=== PATIENT | male | born 1985 | race Caucasian/White ===

== ENCOUNTER 2018-01-20 11:50 | Emergency (ER) | payer OTHER ==
--- NOTE | 2018-01-20 13:29 | RAD REPORT ---
EXAM DESCRIPTION: RAD - Knee Left 3 View - 01/20/2018 1:23 pm CLINICAL HISTORY: Left knee pain status post injury FINDINGS: No fracture or dislocation is seen. No significant bone or joint abnormality is seen
--- NOTE | 2018-01-20 13:39 | ER ---
Nurse's Notes [facility] Name: Mat Jenkins Age: 32 yrs Sex: Male : 1985 Arrival Date: 01/20/2018 Time: 11:57 Bed 16 Private MD: Vaishali Dela Cruz Diagnosis: Pain in left knee Presentation: 01/20 12:01 Presenting complaint: Patient states: LEFT knee pain 8/10 after rolled foot inward hb while walking in yard last night. Unable to bear weight. Transition of care: patient was not received from another setting of care. Onset of symptoms was January 19, 2018. Initial Sepsis Screen: Does the patient meet any 2 criteria? No. Patient's initial sepsis screen is negative. Does the patient have a suspected source of infection? No. Patient's initial sepsis screen is negative. Care prior to arrival: None. 12:01 Method Of Arrival: Wheelchair hb 12:01 Acuity: SANDY 4 hb Historical: - Allergies: 12:03 No Known Allergies; hb - Home Meds: 12:03 None [Active]; hb - PMHx: 12:03 Crohn's; Hernia; PTSD; Tonsillitis; hb - PSHx: 12:03 Appendectomy; Tonsillectomy; Hernia repair; hb - Immunization history:: Adult Immunizations up to date. - Social history:: Smoking status: Patient uses tobacco products, smokes one-half pack cigarettes per day. Screenin:00 Abuse screen: Denies threats or abuse. Denies injuries from another. Nutritional ph screening: No deficits noted. Tuberculosis screening: No symptoms or risk factors identified. Fall Risk None identified. Assessment: 13:00 General: Appears in no apparent distress. uncomfortable, well groomed, Behavior is ph calm, cooperative, appropriate for age. Pain: Complains of pain in left knee. Neuro: Level of Consciousness is awake, alert, obeys commands, Oriented to person, place, time, situation. Cardiovascular: Capillary refill < 3 seconds Patient's skin is warm and dry. Respiratory: Airway is patent Respiratory effort is even, unlabored. Derm: Skin is intact, is healthy with good turgor, Skin is pink, warm \T\ dry. Musculoskeletal: Circulation, motion, and sensation intact. Range of motion: limited in left knee. Vital Signs: 12:00 BP 130 / 93; Pulse 87; Resp 16; Temp 97.8(TE); Pulse Ox 100% on R/A; Weight 88.45 kg; hb Height 5 ft. 7 in. (170.18 cm); Pain 8/10; 12:56 BP 137 / 85; Pulse 84; Resp 17; Pulse Ox 99% ; mh5 12:00 Body Mass Index 30.54 (88.45 kg, 170.18 cm) hb ED Course: 11:57 Patient arrived in ED. as 11:57 [facility] is Private Physician. as 12:02 Triage completed. hb 12:03 Arm band placed on right wrist. hb 12:48 Desmond Pierce MD is Attending Physician. gs 13:00 Patient has correct armband on for positive identification. Bed in low position. Call ph light in reach. Side rails up X 1. 13:19 X-ray completed. Portable x-ray completed in exam room. Patient tolerated procedure jb2 well. 13:21 Knee Left 3 View XRAY In Process Unspecified. EDMS 13:39 Douglas Quintana MD is Referral Physician. gs 14:30 No provider procedures requiring assistance completed. Patient did not have IV access ph during this emergency room visit. 14:34 Kitty Galvan, RN is Primary Nurse. ph Administered Medications: No medications were administered Outcome: 13:39 Discharge ordered by . gs 14:34 Patient left the ED. ph 14:34 Condition: good ph 14:34 Discharge instructions given to Pt left ED before signing discharge papers Signatures: Dispatcher [employer] EDMS Helder Gtz jb2 Meredith Cardenas as Kitty Galvan RN RN Nicolette Fall RN RN Ellen Cardenas [facility] Desmond Pierce MD MD Corrections: (The following items were deleted from the chart) 12:03 12:01 Presenting complaint: Patient states: LEFT ankle pain 8/10 after rolled foot hb inward while walking in yard last night. Unable to bear weight. hb
--- NOTE | 2018-01-20 13:39 | EDPHYS ---
Physician Documentation [facility] Name: Mat Jenkins Age: 32 yrs Sex: Male : 1985 Arrival Date: 01/20/2018 Time: 11:57 Bed 16 [facility] Desmond Pierce HPI: 01/20 13:31 This 32 yrs old Male presents to ER via Wheelchair with complaints of Leg gs Pain. 13:31 The patient presents with an injury, pain. The complaints affect the left knee. Onset: gs The symptoms/episode began/occurred yesterday. Modifying factors: The symptoms are alleviated by nothing. the symptoms are aggravated by movement, weight bearing. Associated signs and symptoms: Pertinent negatives calf tenderness, swelling, hip pain. Severity of symptoms: At their worst the symptoms were moderate, in the emergency department the symptoms are unchanged. The patient has not experienced similar symptoms in the past. Historical: - Allergies: 12:03 No Known Allergies; hb - Home Meds: 12:03 None [Active]; hb - PMHx: 12:03 Crohn's; Hernia; PTSD; Tonsillitis; hb - PSHx: 12:03 Appendectomy; Tonsillectomy; Hernia repair; hb - Immunization history:: Adult Immunizations up to date. - Social history:: Smoking status: Patient uses tobacco products, smokes one-half pack cigarettes per day. ROS: 13:31 All other systems are negative. gs Exam: 13:31 ENT: Nares patent. No nasal discharge, no septal abnormalities noted. Tympanic gs membranes are normal and external auditory canals are clear. Oropharynx with no redness, swelling, or masses, exudates, or evidence of obstruction, uvula midline. Mucous membranes moist. Neck: Trachea midline, no thyromegaly or masses palpated, and no cervical lymphadenopathy. Supple, full range of motion without nuchal rigidity, or vertebral point tenderness. No Meningismus. Chest/axilla: Normal chest wall appearance and motion. Nontender with no deformity. No lesions are appreciated. Cardiovascular: Regular rate and rhythm with a normal S1 and S2. No gallops, murmurs, or rubs. Normal PMI, no JVD. No pulse deficits. Respiratory: Lungs have equal breath sounds bilaterally, clear to auscultation and percussion. No rales, rhonchi or wheezes noted. No increased work of breathing, no retractions or nasal flaring. Abdomen/GI: Soft, non-tender, with normal bowel sounds. No distension or tympany. No guarding or rebound. No evidence of tenderness throughout. Back: No spinal tenderness. No costovertebral tenderness. Full range of motion. Skin: Warm, dry with normal turgor. Normal color with no rashes, no lesions, and no evidence of cellulitis. Neuro: Awake and alert, GCS 15, oriented to person, place, time, and situation. Cranial nerves II-XII grossly intact. Motor strength 5/5 in all extremities. Sensory grossly intact. Cerebellar exam normal. Normal gait. 13:31 Constitutional: The patient appears alert, awake. 13:31 Musculoskeletal/extremity: Extremities: ROM: limited active range of motion due to pain, limited passive range of motion due to pain, in the left knee, Pulses: are normal with no appreciated deficits, Sensation intact. Joints: the left knee displays no swelling or redness pt resisting when putting knee through rom, . Vital Signs: 12:00 BP 130 / 93; Pulse 87; Resp 16; Temp 97.8(TE); Pulse Ox 100% on R/A; Weight 88.45 kg; hb Height 5 ft. 7 in. (170.18 cm); Pain 8/10; 12:56 BP 137 / 85; Pulse 84; Resp 17; Pulse Ox 99% ; mh5 12:00 Body Mass Index 30.54 (88.45 kg, 170.18 cm) hb MDM: 12:58 Patient medically screened. 13:31 Differential diagnosis: closed fracture, tendonitis. Data reviewed: vital signs, nurses gs notes. Response to treatment: There is no appreciated change of the patient's symptoms at this time, and as a result, I will discharge patient. 13:39 Counseling: I had a detailed discussion with the patient and/or guardian regarding: the gs presence of at least one elevated blood pressure reading (>120/80) during this emergency department visit. Special discussion: I have referred the patient to see his PCP for further evaluation of high blood pressure. 01/20 12:59 Order name: Knee Left 3 View XRAY; Complete Time: 13:31 gs Administered Medications: No medications were administered Disposition: 01/20/18 13:39 Discharged to Home. Impression: Pain in left knee. - Condition is Stable. - Discharge Instructions: Arthralgia, Knee Pain, Managing Your High Blood Pressure. - Medication Reconciliation Form, Thank You Letter, Antibiotic Education, Prescription Opioid Use form. - Follow up: Douglas Quintana MD; When: 2 - 3 days; Reason: Re-evaluation by your physician. Signatures: Dispatcher [employer] Kitty Foster RN RN ph Baxter, Heather, RN RN Desmond Pierce MD MD
[2018-01-20 14:37] VITALS: TEMP 97.8
[2018-01-20 14:38] VITALS: BP 137/85; O2SAT 99
== END 2018-01-20 14:34 | disposition home or self-care (01) ==
LOC: ER 11:50
DX: M25.562 Pain in left knee (principal); F17.210 Nicotine dependence, cigarettes, uncomplicated
CPT/HCPCS: 99283

== ENCOUNTER 2020-11-16 12:22 | Emergency (ER) | payer OTHER ==
[2020-11-16 12:57] LABS: Absolute Lymphocytes (CBC) 2.8 K/uL (0.7-4.9); Basophils % 0.6 % (0-1.3); Lymphocytes % 35.4 % (15.3-44.8); MPV 7.6 fL (7.6-11.3); RBC Red Blood Cell Count 4.49 M/uL (4.33-5.43)
[2020-11-16 12:58] LABS: Protime INR 0.96
[2020-11-16 13:15] LABS: ALT/SGPT 33 U/L (12-78); AST/SGOT 12 U/L (15-37); Albumin 3.9 g/dL (3.4-5.0); Alkaline Phosphatase 40 U/L (45-117); BUN Blood Urea Nitrogen 9 mg/dL (7-18); Bicarbonate 26 mmol/L (21-32); Bilirubin Direct < 0.1 mg/dL (0-0.2); Bilirubin Total 0.2 mg/dL (0.2-1.0); Glucose Level 99 mg/dL (74-106); Magnesium 2.4 mg/dL (1.8-2.4); NT PRO-BNP 19 pg/mL (<125); Potassium 4.2 mmol/L (3.5-5.1); Protein, Total 7.4 g/dL (6.4-8.2); Sodium Level 141 mmol/L (136-145); Troponin (Emerg Dept Use Only) < 0.02 ng/mL (0.0-0.045)
--- NOTE | 2020-11-16 13:22 | RAD REPORT ---
EXAM DESCRIPTION: RAD - Chest Single View - 11/16/2020 1:15 pm CLINICAL HISTORY: CHEST PAIN Chest pain. COMPARISON: Chest Single View dated 10/03/2017; CHEST PA AND LAT 2 VIEW dated 01/07/2012; CHEST SINGLE VIEW dated 04/29/2011 FINDINGS: Portable technique limits examination quality. The lungs are grossly clear. The heart is normal in size. No displaced fractures. IMPRESSION: No acute intrathoracic process suspected.
[2020-11-16 15:25] LABS: SARS-COV-2 RT PCR NEGATIVE (NEGATIVE)
--- NOTE | 2020-11-16 15:53 | EDPHYS ---
Physician Documentation [facility] Name: Mat Jenkins Age: 35 yrs Sex: Male : 1985 Arrival Date: 11/16/2020 Time: 12:26 Bed 20 Private MD: ED Physician Mahendra Ag HPI: 11/16 14:24 This 35 yrs old Male presents to ER via EMS with complaints of Chest Pain. kb 14:24 The patient or guardian reports chest pain that is located primarily in the anterior kb chest wall, left. The pain radiates to the left shoulder. Associated signs and symptoms: Pertinent positives: shortness of breath, Pertinent negatives: abdominal pain, cough, diaphoresis, dizziness, headache, lower extremity pain, lower extremity swelling, lightheadedness, nausea, near syncope, palpitations, recent travel, syncope, vomiting. The chest pain is described as a pressure. Duration: The patient or guardian reports a single episode, that is still ongoing. Modifying factors: The symptoms are alleviated by nothing. the symptoms are aggravated by nothing. Severity of pain: At its worst the pain was moderate in the emergency department the pain is unchanged. The patient has not experienced similar symptoms in the past. The patient has been recently seen by a physician: the patient's primary care provider, earlier today, with similar presenting complaints, and was sent to the [facility] Emergency Department for further evaluation. Pt reports left sided chest pain, shortness of breath, fatigue and not feeling well for 2-3 days. States he believes it is related to stress. 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 asked pt to come get checked out so that is what made him come today. . Historical: - Allergies: 12:29 No Known Allergies; bp - Home Meds: 12:29 None [Active]; bp - PMHx: 12:29 Crohn's; Hernia; PTSD; Tonsillitis; bp - Immunization history:: Adult Immunizations up to date. - Social history:: Smoking status: unknown. ROS: 14:22 Abdomen/GI: Negative for abdominal pain, nausea, vomiting, diarrhea, and constipation, kb Back: Negative for injury and pain, MS/Extremity: Negative for injury and deformity, Skin: Negative for injury, rash, and discoloration, Neuro: Negative for headache, weakness, numbness, tingling, and seizure. 14:22 Constitutional: Positive for fatigue, malaise. 14:22 Cardiovascular: Positive for chest pain. 14:22 Respiratory: Positive for shortness of breath. 14:22 Psych: Positive for insomnia. Exam: 14:23 Constitutional: This is a well developed, well nourished patient who is awake, alert, kb and in no acute distress. Head/Face: Normocephalic, atraumatic. Chest/axilla: Normal chest wall appearance and motion. Nontender with no deformity. No lesions are appreciated. Cardiovascular: Regular rate and rhythm with a normal S1 and S2. No gallops, murmurs, or rubs. Normal PMI, no JVD. No pulse deficits. Respiratory: Lungs have equal breath sounds bilaterally, clear to auscultation and percussion. No rales, rhonchi or wheezes noted. No increased work of breathing, no retractions or nasal flaring. Abdomen/GI: Soft, non-tender, with normal bowel sounds. No distension or tympany. No guarding or rebound. No evidence of tenderness throughout. Skin: Warm, dry with normal turgor. Normal color with no rashes, no lesions, and no evidence of cellulitis. MS/ Extremity: Pulses equal, no cyanosis. Neurovascular intact. Full, normal range of motion. 14:23 Neuro: Orientation: is normal, to person, place, time \T\ situation. Mentation: is normal, able to follow commands, Motor: is normal, moves all fours, Sensation: is normal, Gait: is steady. 15:02 ECG was reviewed by the Attending Physician. Vital Signs: 12:40 BP 121 / 83; Pulse 84; Resp 23; Temp 98; Pulse Ox 98% ; bp 13:44 BP 108 / 71 Supine; Pulse 74; Resp 14; Pulse Ox 99% on R/A; mh5 13:46 BP 101 / 72 Sitting; Pulse 88; Resp 18; Pulse Ox 99% on R/A; mh5 13:48 BP 106 / 67 Standing; Pulse 83; Resp 12; Temp 98.4(O); Pulse Ox 99% on R/A; mh5 14:30 BP 108 / 67; Pulse 69; Resp 19; Pulse Ox 98% ; bp 15:30 BP 110 / 73; Pulse 73; Resp 15; Pulse Ox 98% ; bp 16:15 BP 118 / 75; Pulse 88; Resp 22; Temp 98.5; Pulse Ox 100% ; bp MDM: 12:28 Patient medically screened. kb 14:22 Data reviewed: vital signs, nurses notes. Data interpreted: Pulse oximetry: on room air kb is 99 %. Interpretation: normal. Counseling: I had a detailed discussion with the patient and/or guardian regarding: the historical points, exam findings, and any diagnostic results supporting the discharge/admit diagnosis, lab results, radiology results, the need for outpatient follow up, a disulfurizer tender, a family practitioner, to return to the emergency department if symptoms worsen or persist or if there are any questions or concerns that arise at home. 11/16 12:28 Order name: Basic Metabolic Panel kb 11/16 12:28 Order name: CBC with Diff; Complete Time: 13:01 kb 11/16 12:28 Order name: LFT's kb 11/16 12:28 Order name: Magnesium kb 11/16 12:28 Order name: NT PRO-BNP; Complete Time: 13:18 kb 11/16 12:28 Order name: PT-INR; Complete Time: 13:04 kb 11/16 12:28 Order name: Troponin (emerg Dept Use Only); Complete Time: 13:18 kb 11/16 12:29 Order name: Basic Metabolic Panel; Complete Time: 13:18 EDMS 11/16 12:29 Order name: Liver (Hepatic) Function; Complete Time: 13:18 EDMS 11/16 12:29 Order name: Magnesium; Complete Time: 13:18 EDMS 11/16 14:27 Order name: Troponin (emerg Dept Use Only); Complete Time: 15:52 kb 11/16 15:26 Order name: COVID-19/FLU A+B; Complete Time: 15:39 EDMS 11/16 12:28 Order name: XRAY Chest (1 view); Complete Time: 13:38 kb 11/16 12:28 Order name: EKG; Complete Time: 12:29 kb 11/16 12:28 Order name: Cardiac monitoring; Complete Time: 12:42 kb 11/16 12:28 Order name: EKG - Nurse/Tech; Complete Time: 12:42 kb 11/16 12:28 Order name: IV Saline Lock; Complete Time: 12:45 kb 11/16 12:28 Order name: Labs collected and sent; Complete Time: 12:45 kb 11/16 12:28 Order name: O2 Per Protocol; Complete Time: 12:42 kb 11/16 12:28 Order name: O2 Sat Monitoring; Complete Time: 12:42 kb 11/16 12:50 Order name: Orthostatics; Complete Time: 15:03 kb 11/16 14:27 Order name: EKG; Complete Time: 14:28 kb 11/16 14:27 Order name: EKG - Nurse/Tech; Complete Time: 16:01 kb EC:02 Rate is 77 beats/min. Rhythm is regular. QRS [place] is Normal. TN interval is normal at kb 134 msec. QRS interval is normal at 88 msec. QT interval is normal at 358 msec. Administered Medications: No medications were administered Disposition: 17:58 Co-signature as Attending Physician, Mahendra Ag MD. rn Disposition: 11/16/20 15:52 Discharged to Home. Impression: Chest pain, unspecified. - Condition is Stable. - Discharge Instructions: Nonspecific Chest Pain, [id number]. - Medication Reconciliation Form, Thank You Letter, Antibiotic Education, Prescription Opioid Use form. - Follow up: Emergency Department; When: As needed; Reason: Worsening of condition. Follow up: Private Physician; When: 2 - 3 days; Reason: Recheck today's complaints, Continuance of care, Re-evaluation by your physician. Signatures: Dispatcher [employer] [facility] Arely Aguila, OTR REFRIGERATED CDL TRUCK DRIVER-C OTR REFRIGERATED CDL TRUCK DRIVER-Ckb Mahendra Ag MD MD rn Peltier, Brian, RN RN bp Corrections: (The following items were deleted from the chart) 14:33 12:51 CORONAVIRUS+MR.LAB.BRZ ordered. EDW[facility] EDMS 14:34 12:51 Influenza Screen (A \T\ B)+BA.LAB.BRZ ordered. [facility] EDW[facility] 16:17 15:52 11/16/2020 15:52 Discharged to Home. Impression: Chest pain, unspecified. bp Condition is Stable. Forms are Medication Reconciliation Form, Thank You Letter, Antibiotic Education, Prescription Opioid Use. Follow up: Emergency Department; When: As needed; Reason: Worsening of condition. Follow up: Private Physician; When: 2 - 3 days; Reason: Recheck today's complaints, Continuance of care, Re-evaluation by your physician. kb
--- NOTE | 2020-11-16 15:53 | ER ---
Nurse's Notes [facility] Name: Mat Jenkins Age: 35 yrs Sex: Male : 1985 Arrival Date: 11/16/2020 Time: 12:26 Bed 20 Private MD: Diagnosis: Chest pain, unspecified Presentation: 11/16 12:26 Chief complaint: EMS states: LEFT SIDED CHEST PAIN x2 DAYS, +ANXIETY. Coronavirus bp screen: At this time, the client does not indicate any symptoms associated with coronavirus-19. Ebola Screen: No symptoms or risks identified at this time. Initial Sepsis Screen: Does the patient meet any 2 criteria? No. Patient's initial sepsis screen is negative. Does the patient have a suspected source of infection? No. Patient's initial sepsis screen is negative. Risk Assessment: Do you want to hurt yourself or someone else? Patient reports no desire to harm self or others. Onset of symptoms is unknown. 12:26 Method Of Arrival: EMS: [facility] bp 12:26 Acuity: SANDY 3 bp Triage Assessment: 12:29 General: Appears in no apparent distress. comfortable, Behavior is cooperative, bp appropriate for age, anxious. Pain: Denies pain. EENT: No deficits noted. Neuro: No deficits noted. Cardiovascular: Rhythm is sinus rhythm. Respiratory: No deficits noted. GI: No signs and/or symptoms were reported involving the gastrointestinal system. : No signs and/or symptoms were reported regarding the genitourinary system. Derm: No deficits noted. Musculoskeletal: No deficits noted. Historical: - Allergies: 12:29 No Known Allergies; bp - Home Meds: 12:29 None [Active]; bp - PMHx: 12:29 Crohn's; Hernia; PTSD; Tonsillitis; bp - Immunization history:: Adult Immunizations up to date. - Social history:: Smoking status: unknown. Screenin:30 Abuse screen: Denies threats or abuse. Denies injuries from another. Nutritional bp screening: No deficits noted. Tuberculosis screening: No symptoms or risk factors identified. Fall Risk None identified. Assessment: 12:30 General: SEE TRIAGE NOTE. Pain: Denies pain. Pain radiates to left arm Pain began 2-3 bp days ago. 14:30 Reassessment: No changes from previously documented assessment. Patient and/or family bp updated on plan of care and expected duration. Pain level reassessed. Patient is alert, oriented x 3, equal unlabored respirations, skin warm/dry/pink. Cardiovascular: Rhythm is sinus rhythm. 16:12 Reassessment: PT D/C HOME AMBULATORY, DX WITH NONSPECIFIC CP. bp Vital Signs: 12:40 BP 121 / 83; Pulse 84; Resp 23; Temp 98; Pulse Ox 98% ; bp 13:44 BP 108 / 71 Supine; Pulse 74; Resp 14; Pulse Ox 99% on R/A; mh5 13:46 BP 101 / 72 Sitting; Pulse 88; Resp 18; Pulse Ox 99% on R/A; mh5 13:48 BP 106 / 67 Standing; Pulse 83; Resp 12; Temp 98.4(O); Pulse Ox 99% on R/A; mh5 14:30 BP 108 / 67; Pulse 69; Resp 19; Pulse Ox 98% ; bp 15:30 BP 110 / 73; Pulse 73; Resp 15; Pulse Ox 98% ; bp 16:15 BP 118 / 75; Pulse 88; Resp 22; Temp 98.5; Pulse Ox 100% ; bp ED Course: 12:26 Patient arrived in ED. bp 12:28 Arely Aguila FNP-C is PHCP. kb 12:28 Mahendra Ag MD is Attending Physician. kb 12:28 Triage completed. bp 12:29 Arm band placed on. bp 12:30 Patient has correct armband on for positive identification. Bed in low position. Call bp light in reach. Side rails up X2. quality assurance monitor final on. Pulse ox on. NIBP on. 12:30 Maintain EMS IV. Dressing intact. Good blood return noted. Site clean \T\ dry. Gauge \T\ bp site: 20 GAUGE R AC. Patient maintains SpO2 saturation greater than 95% on room air. 12:42 Tonny Fenton, SHARA is Primary Nurse. bp 12:47 Magnesium Sent. mh5 12:47 Liver (Hepatic) Function Sent. mh5 12:47 Basic Metabolic Panel Sent. mh5 12:47 Basic Metabolic Panel Sent. 5 12:47 CBC with Diff Sent. 5 12:48 LFT's Sent. 5 12:48 Magnesium Sent. 5 12:48 NT PRO-BNP Sent. 5 12:48 PT-INR Sent. 5 12:48 Troponin (emerg Dept Use Only) Sent. [facility] 12:48 Initial lab(s) drawn, by mn, sent to lab. EKG done, by ED staff, reviewed by Mahendra Ag MD. Maintain EMS IV. Dressing intact. Site clean \T\ dry. 13:15 XRAY Chest (1 view) In Process Unspecified. EDMS 16:12 No provider procedures requiring assistance completed. IV discontinued, intact, bp bleeding controlled, No redness/swelling at site. Pressure dressing applied. Administered Medications: No medications were administered Outcome: 15:52 Discharge ordered by . kb 16:16 Discharged to home ambulatory. bp 16:16 Condition: stable 16:16 Discharge instructions given to patient, Instructed on discharge instructions, follow up and referral plans. Demonstrated understanding of instructions, follow-up care. 16:17 Patient left the ED. bp Signatures: Dispatcher [employer] EDMS Arely Aguila, MAIKOL VINCENTP-Ellen Kam Tonny Myles, RN RN bp Corrections: (The following items were deleted from the chart) 13:56 13:48 BP 106 / 67 Standing; Pulse 83bpm; Resp 12bpm; Pulse Ox 99% RA; Fl[facility]
[2020-11-16 18:36] VITALS: BP 118/75; TEMP 98.5; O2SAT 100
--- NOTE | 2020-11-17 05:37 | EKG ---
Test Date: 2020-11-16 Test Time: 15:31:01 Private Inquiry Agent: EUGENIA MEASUREMENT RESULTS: Intervals: Rate: 71 MN: 164 QRSD: 94 QT: 376 QTc: 408 [place]: P: 55 MN: 164 QRS: 42 T: 31 INTERPRETIVE STATEMENTS: Normal sinus rhythm Normal ECG Compared to ECG 11/16/2020 12:33:59 Sinus arrhythmia no longer present Electronically Signed On 11-17-20 05:35:30 DROP FORGER by Herber Carbajal
--- NOTE | 2020-11-17 05:38 | EKG ---
Test Date: 2020-11-16 Test Time: 12:33:59 Center Lead Consultant: EUGENIA MEASUREMENT RESULTS: Intervals: Rate: 77 ND: 134 QRSD: 88 QT: 358 QTc: 405 [place]: P: 22 ND: 134 QRS: 57 T: 54 INTERPRETIVE STATEMENTS: Normal sinus rhythm with sinus arrhythmia Normal ECG Compared to ECG 10/03/2017 15:41:59 No significant changes Electronically Signed On 11-17-20 05:35:36 BLADE WORKER by Herber Carbajal
== END 2020-11-16 16:17 | disposition home or self-care (01) ==
LOC: ER 12:22
DX: R07.89 Other chest pain (principal); Z20.822 Contact with and (suspected) exposure to COVID-19; R06.02 Shortness of breath
CPT/HCPCS: 93005 ×2; 85025; 80048; 36415; 83735; 85610; 80076; 84484 ×2; 83880; 0240U; 71045; 99285

== ENCOUNTER 2023-08-28 18:47 | Emergency (ER) | payer OTHER ==
--- OUTSIDE RECORDS SUMMARY | 2023-08-28 18:53 | XMS REPORT | Continuity of Care Document ---
Author Name Unknown Address [address] [facility] [address] [place] [address] [facility] thconnect Address [address] [facility] [place] [address] Care Team Providers Care Environmental Services Tech Name Role Phone CTR, [facility] Primary Care Physician U JORGE Hunter Attending Clinician Unavailable Jorge Hinojosa DO Attending Clinician [phone] VALENTINE HANEY Attending Clinician Unavailab Valentine Dahl DO Attending Clinician [phone] JASMYNE NOWAK Attending Clinician Unavailable Jasmyne Nowak NP Attending Clinician [phone] Payers Payer Name Policy Type Policy Number Effective Date Expirati on Date Source [facility] [id number] 2008 00:00:00 [facility] [id number] 2008 00:00:00 2023 00:00:00 Allergies, Adverse Reactions, Alerts Allergy Name Allergy Type Status Severity Reaction(s) Onset Date Inactive Date Treating Clinician Comments Source NO KNOWN ALLERGIE S Drug Class Active [facility] Social History Social Habit Start Date Stop Date Quantity Comments Source Sexual orientation U [facility] Exposure to SARS-CoV-2 (event) 2022-08-21 00:00:00 2022-08-31 12:37:00 Not sure [facility] Sex Assigned At 1985 00:00:00 1985 00:00:00 [facility] Smoking Status Start Date Stop Date Source Tobacco smoking consumption unknown [facility] Medications Ordered Medication Name Filled Medication Name Start Date Stop Date Current Medication? Ordering Clinician Indication Dosage Frequency Signature (SIG) Comments Components Source NaCl 0.9% (NS) bolus infusion 1,000 mL 03-07 17:00: 00 03-07 18:52 :00 No 1000mL at 999 mL/hr, 1,000 mL, IV Infusion, ONCE, 1 dose, On [place] 03/07/23 at 1200, [facility] ondansetron (ZOFRAN (PF)) injection 4 mg 03-07 16:15: 00 03-07 16:39 :00 No 4mg 4 mg, Slow IV Push, ONCE, 1 dose, On [facility] 03/07/23 at 1115, [facility] benzonatate 100 mg capsule 2021-09 00:00: 00 Yes [id number] 200mg Take 2 capsules by mouth 3 (three) times daily as needed for Cough. [facility] benzonatate 100 mg capsule 2021-09 00:00: 00 Yes [id number] 200mg Take 2 capsules by mouth 3 (three) times daily as needed for Cough. [facility] benzonatate 100 mg capsule 2021-09 00:00: 00 Yes [id number] 200mg Take 2 capsules by mouth 3 (three) times daily as needed for Cough. [facility] Vital Signs Vital Name Observation Time Observation Value Comments S jude Systolic blood pressure 2023-08-26 16:11:00 149 mm[Hg] [facility] Diastolic blood pressure 2023-08-26 16:11:00 91 mm[Hg] [facility] Heart rate 2023-08-26 16:11:00 79 [facility] Body temperature 2023-08-26 16:11:00 37.39 Abby [facility] Respiratory rate 2023-08-26 16:11:00 14 /min [facility] Body height 2023-08-26 16:11:00 170.2 cm [facility] Body weight 2023-08-26 16:11:00 88.451 kg [facility] BMI 2023-08-26 16:11:00 30.54 kg/m2 [facility] Oxygen saturation in Arterial blood by Pulse oximetry 2023-08-26 16:11:00 100 /min [facility] Systolic blood pressure 2023-03-07 18:53:00 129 mm[Hg] [facility] Diastolic blood pressure 2023-03-07 18:53:00 72 mm[Hg] [facility] Heart rate 2023-03-07 18:53:00 73 /min Unive [facility] Respiratory rate 2023-03-07 18:53:00 16 /min [facility] Oxygen saturation in Arterial blood by Pulse oximetry 2023-03-07 18:53:00 96 /min [facility] Body temperature 2023-03-07 16:00:00 37.39 Abby [facility] Body height 2023-03-07 16:00:00 170.2 cm [facility] Body weight 2023-03-07 16:00:00 86.183 kg [facility] BMI 2023-03-07 16:00:00 29.76 kg/m2 [facility] Systolic blood pressure 2022-08-31 18:38:00 141 mm[Hg] [facility] Diastolic blood pressure 2022-08-31 18:38:00 89 mm[Hg] [facility] Heart rate 2022-08-31 18:38:00 86 /min Unive [facility] Body temperature 2022-08-31 18:38:00 37.39 Abby [facility] Respiratory rate 2022-08-31 18:38:00 16 /min [facility] Body height 2022-08-31 18:38:00 170.2 cm [facility] Body weight 2022-08-31 18:38:00 83.915 kg [facility] BMI 2022-08-31 18:38:00 28.98 kg/m2 [facility] Oxygen saturation in Arterial blood by Pulse oximetry 2022-08-31 18:38:00 100 /min [facility] Procedures Procedure Date / Time Performed Performing Clinicia n Source CONSENT/REFUSAL FOR DIAGNOSIS AND TREATMENT 2023-08-26 15:44:22 Doctor Unassigned, Chelan [facility] EKG-12 LEAD 2023-03-07 18:45:52 [facility] 2023-03-07 16:26:00 Valentine Haney [facility] TROPONIN I 2023-03-07 16:26:00 Valentine Haney [facility] COMP. METABOLIC PANEL ([id number]) 2023-03-07 16:26:00 Valentine Haney [facility] CBC WITH DIFF 2023-03-07 16:26:00 [facility]SENT/REFUSAL FOR DIAGNOSIS AND TREATMENT 2023-03-07 15:59:48 Doctor Unassigned, Chelan [facility] NOTICE OF PRIVACY PRACTICES 2022-08-31 18:36:45 Doctor Unassigned, Chelan [facility] CONSENT/REFUSAL FOR DIAGNOSIS AND TREATMENT 2022-08-31 18:34:37 Doctor Unassigned, Chelan [facility] Encounters Start Date/Time End Date/Time Encounter Type Admission Type Attending [facility] Care Department Encounter ID Source 2023-08-26 10:12:00 2023-08-26 11:32:00 Emergency JORGE BRIONES [facility] ERT [id number] [facility] 2023-08-26 10:12:00 2023-08-26 11:32:00 Emergency Jorge Hinojosa [facility] [id number] [facility] 2023-03-07 11:15:00 2023-03-07 13:57:00 Emergency X VALENTINE HANEY [facility] ERT [id number] [facility] 2023-03-07 11:15:00 2023-03-07 13:57:00 Emergency Valentine Haney [facility] [id number] [facility] 2022-08-31 12:40:00 2022-08-31 13:39:00 Emergency X JASMYNE NOWAK [facility] ERT [id number] [facility] 2022-08-31 12:40:00 2022-08-31 13:39:00 Emergency Jasmyne Nowak [facility] [id number] [facility]
[2023-08-28] MEDS ORDERED: CEFEPIME 2 GM VIAL ONE (19:55)
[2023-08-28] MEDS ORDERED: NA CHLORIDE 0.9% 250 ML ONE (19:56)
[2023-08-28] MEDS ORDERED: NA CHLORIDE 0.9% 100 ML ONE (19:56)
[2023-08-28] MEDS ORDERED: VANCOMYCIN 1 GM/VIAL ONE (19:56)
[2023-08-28] MEDS ORDERED: NA CHLORIDE 0.9% 1,000 ML ONE (19:56)
[2023-08-28] MEDS ORDERED: TETRACAINE HCL 0.5% 5 ML OPTH ONE (20:35)
[2023-08-28 20:54] LABS: Absolute Lymphocytes (CBC) 0.7 K/uL (0.7-4.9); Hematocrit 44.9 % (39.6-49.0); Lymphocytes % 5.9 % (15.3-44.8); MCV 91.3 fL (80-100); MPV 7.3 fL (7.6-11.3); Platelets 254 thou/uL (152-406); RBC Red Blood Cell Count 4.92 M/uL (4.33-5.43)
[2023-08-28 21:00] LABS: Protime INR 1.11
[2023-08-28 21:03] LABS: Albumin 4.1 g/dL (3.4-5.0); Bilirubin Total 0.4 mg/dL (0.2-1.0); Potassium 3.5 mEq/L (3.5-5.1); Protein, Total 8.3 g/dL (6.4-8.2)
[2023-08-28] MEDS ORDERED: LIDOCAINE 2% MPF 5 ML VIAL ONE (21:05)
[2023-08-28] MEDS ORDERED: MORPHINE 4 MG/ML SYR ONE (21:05)
[2023-08-28] MEDS ORDERED: KETOROLAC 30 MG/ML INJ ONE (21:05)
[2023-08-28] MEDS ORDERED: ONDANSETRON 4 MG/2 ML VIAL ONE (21:06)
--- NOTE | 2023-08-28 21:10 | ER ---
Nurse's Notes [facility] Name: Mat Jenkins Age: 38 yrs Sex: Male : 1985 Arrival Date: 08/28/2023 Time: 18:47 Bed 7 Private MD: Diagnosis: Hordeolum externum left lower eyelid;Other mucopurulent conjunctivitis, left eye Presentation: 08/28 19:08 Chief complaint: Patient states: Infection in left eye. They put me on Doxycycline and vc1 besivance eye drops. They told me if I get worse to come to the ER. He thought it might be conjuctive cellulitis. I can't see out of my eye. Coronavirus screen: Vaccine status: Patient reports being unvaccinated. At this time, the client does not indicate any symptoms associated with coronavirus-19. Ebola Screen: Patient negative for fever greater than or equal to 101.5 degrees Fahrenheit, and additional compatible Ebola Virus Disease symptoms Patient denies exposure to infectious person. Patient denies travel to an Ebola-affected area in the 21 days before illness onset. No symptoms or risks identified at this time. Initial Sepsis Screen: Does the patient meet any 2 criteria? RR > 20 per min. Temp <36.0*C (96.8*F)) or > 38.3*C (100.9*F). HR > 90 bpm. Yes Does the patient have a suspected source of infection? Yes: Other: eye infection If YES to both, name of provider notified: Santi Hargrove MD. Risk Assessment: Do you want to hurt yourself or someone else? Patient reports no desire to harm self or others. Onset of symptoms was August 24, 2023. 19:08 Method Of Arrival: Ambulatory vc1 19:08 Acuity: SANDY 2 vc1 19:14 Care prior to arrival: Medication(s) given: Tylenol, 1000 mg. vc1 Triage Assessment: 19:15 General: Appears in no apparent distress. uncomfortable, Behavior is calm, cooperative, vc1 appropriate for age. General: Reports chills for fever for. Pain: Complains of pain in left eye Pain does not radiate. Pain currently is 7 out of 10 on a pain scale. EENT: Eyes are tearing on inner aspect of conjunctiva of left eye Sclera/Cornea are reddened in outer aspect of conjuctiva of left eye, iris of left eye and inner aspect of conjunctiva of left eye. EENT: Reports can't see out of left eye. Neuro: Level of Consciousness is awake, alert, obeys commands, Oriented to person, place, time, situation, Appropriate for age. Cardiovascular: No deficits noted. Respiratory: Airway is patent Respiratory effort is even, unlabored, Respiratory pattern is regular, symmetrical. GI: No deficits noted. No signs and/or symptoms were reported involving the gastrointestinal system. : No deficits noted. No signs and/or symptoms were reported regarding the genitourinary system. Derm: Skin temperature is hot. Musculoskeletal: No deficits noted. No signs and/or symptoms reported regarding the musculoskeletal system. Historical: - Allergies: 19:15 No Known Allergies; vc1 - PMHx: 19:15 Crohn's; Hernia; PTSD; Tonsillitis; vc1 - PSHx: 19:15 Appendectomy; vc1 - Immunization history:: Client reports having NOT received the Covid vaccine. Flu vaccine is not up to date. - Social history:: Smoking status: Patient reports use of chewing tobacco. - Family history:: not pertinent. Screenin:17 Abuse screen: Denies threats or abuse. Nutritional screening: No deficits noted. vc1 Tuberculosis screening: No symptoms or risk factors identified. 19:31 [facility] ED Fall Risk Assessment (Adult) History of falling in the last 3 months, jj7 including since admission No falls in past 3 months (0 pts) Confusion or Disorientation No (0 pts) Intoxicated or Sedated No (0 pts) Impaired Gait No (0 pts) Mobility Assist Device Used Yes (1 pt) Altered Elimination No (0 pt) Score/Fall Risk Level 0 - 2 = Low Risk Oriented to surroundings, Maintained a safe environment, Educated pt \T\ family on fall prevention, incl call for assistance when getting out of bed. Assessment: 19:31 General: Appears in no apparent distress. uncomfortable, Behavior is calm, cooperative, jj7 appropriate for age. EENT: Eyes with exudate noted from outer aspect of conjuctiva of left eye, iris of left eye and inner aspect of conjunctiva of left eye. Vital Signs: 19:08 BP 157 / 92; Pulse 112; Resp 22; Temp 101; Pulse Ox 100% ; Weight 88.45 kg; Height 5 vc1 ft. 7 in. ; Pain 7/10; 20:11 BP 143 / 85; Pulse 106; Resp 13; Pulse Ox 100% ; jj7 21:08 BP 135 / 79; Pulse 101; Resp 14; Pulse Ox 96% ; Pain 0/10; jj7 21:40 BP 141 / 78; Pulse 101; Resp 15; Temp 101; Pulse Ox 97% ; jj7 22:53 BP 120 / 68; Pulse 92; Resp 17; Temp 99.5; Pulse Ox 96% ; Pain 1/10; jj7 19:08 Body Mass Index 30.54 (88.45 kg, 170.18 cm) vc1 19:08 Pain Scale: Adult vc1 21:08 Pain Scale: Adult jj7 22:53 Pain Scale: Adult jj7 ED Course: 18:52 Patient arrived in ED. mr 18:54 Santi Hargrove MD is Attending Physician. rt 19:14 Triage completed. vc1 19:15 Arm band placed on right wrist. vc1 19:31 Eleni Cartwright, SHARA is Primary Nurse. jj7 19:31 Patient has correct armband on for positive identification. Placed in gown. Bed in low jj7 position. Call light in reach. Adult w/ patient. 19:31 Client placed on continuous cardiac and pulse oximetry monitoring. NIBP monitoring jj7 applied. gambling monitor on. 20:05 Inserted saline lock: 20 gauge in right antecubital area, using aseptic technique. jj7 Blood collected. 20:09 Blood Culture Adult (2) Sent. jj7 20:09 CBC with Diff Sent. jj7 20:09 CMP Sent. jj7 20:09 Lactate w/ 2H reflex if indic. Sent. jj7 20:09 Protime (+inr) Sent. jj7 20:09 Ptt, Activated Sent. jj7 20:10 Attending Physician role handed off by Santi Hargrove MD sp4 20:10 Jose Acosta MD is Attending Physician. sp4 21:07 Lactate w/ 2H reflex if indic. Sent. wm 21:07 Blood Culture Adult (2) Sent. wm 21:31 CT Facial Bones W/ Con \T\ Mpr In Process Unspecified. EDMS 22:55 Provided Education on: importance of antibiotics. jj7 22:55 No provider procedures requiring assistance completed. IV discontinued, intact, jj7 bleeding controlled, No redness/swelling at site. Pressure dressing applied. Administered Medications: 20:10 Drug: Cefepime IVPB 2 grams IVPB at 200 ml/hr once over 30 mins; (mix in NS 100 mL) jj7 Route: IVPB; Rate: 200 ml/hr; Infused Over: 30 mins; Site: right antecubital; 20:55 Follow up: IV Status: Completed infusion jj7 20:10 Drug: NS 0.9% IV 1000 ml IV at 1 bolus Per protocol; 1000 mL bolus Route: IV; Rate: 1 j7 bolus; Site: right antecubital; 21:06 Follow up: IV Status: Completed infusion jj7 21:01 Drug: morphine IVP or IV 4 mg IVP once over 4 mins Route: IVP; Infused Over: 4 mins; jj7 Site: right antecubital; 21:41 Follow up: Response: Marked relief of symptoms jj7 21:02 Drug: vancoMYCIN IVPB 1 grams IVPB once over 2 hrs Route: IVPB; Infused Over: 2 hrs; jj7 Site: right antecubital; 21:20 Follow up: IV Pause: 08/28/2023 21:20; IV Pause Reason: Patient to CT jj7 22:56 Follow up: IV Status: Completed infusion jj7 21:02 Drug: Ondansetron IVP 4 mg IVP once; over 2 minutes Route: IVP; Site: right antecubital;jj7 21:41 Follow up: Response: No adverse reaction jj7 21:02 Drug: Ketorolac IVP 30 mg IVP once Route: IVP; Site: right antecubital; jj7 21:41 Follow up: Response: Marked relief of symptoms jj7 21:03 Drug: Lidocaine Infiltration (1 %) 5 mg Infiltration once {Note: ADMIN BY DR LOYD.} jj7 Route: Infiltration; 21:19 Drug: Trimethoprim-Sulfamethoxazole PO (160 mg-800 mg (DS) 1 tablet PO once Route: PO; jj7 21:42 Follow up: Response: No adverse reaction jj7 21:41 Drug: Acetaminophen PO 1000 mg PO once Route: PO; jj7 22:52 Follow up: Response: Temperature is decreased jj7 21:41 Drug: Ibuprofen PO 800 mg PO once Route: PO; jj7 22:52 Follow up: Response: Temperature is decreased jj7 Medication: 19:17 VIS not applicable for this client. vc1 Outcome: 21:09 Discharge ordered by sp4 22:55 Discharged to home ambulatory, with family, jj7 22:55 Condition: improved 22:55 Discharge instructions given to patient, family, Instructed on discharge instructions, follow up and referral plans. medication usage, Demonstrated understanding of instructions, follow-up care, medications, Prescriptions given X 3, 22:56 Patient left the ED. jj7 Signatures: Dispatcher [employer] EDMS Joyce Maier, Reg Reg mr Cynthia Chakraborty wm Daria Watkins RN RN vc1 Eleni Cartwright RN RN jj7 Santi Hargrove MD MD rt Potepalov, Sergey, MD MD sp4 Corrections: (The following items were deleted from the chart) 19:26 19:08 Acuity: SANDY 3 vc1 vc1 22:55 21:40 Temp 101F; jj7 jj7
--- NOTE | 2023-08-28 21:10 | EDPHYS ---
Physician Documentation [facility] Name: Mat Jenkins Age: 38 yrs Sex: Male : 1985 Arrival Date: 08/28/2023 Time: 18:47 Bed 7 Private MD: ED Physician Jose Acosta HPI: 08/28 20:12 This 38 yrs old Male presents to ER via Ambulatory with complaints of Drainage From rt Eye, Fever. 20:12 Patient presents to the ED with left eye drainage, redness that is progressively rt worsening over the past 3 to 4 days. Has had worsening blurry vision to the point where he is essentially blind, sees mostly black and only occasional light. He has been on doxycycline, antibiotic eyedrops during that time and continues to worsen despite that. Was sent to the ED for further eval, symptoms are severe in severity, no other aggravating or elevating factors. Historical: - Allergies: 19:15 No Known Allergies; vc1 - PMHx: 19:15 Crohn's; Hernia; PTSD; Tonsillitis; vc1 - PSHx: 19:15 Appendectomy; vc1 - Immunization history:: Client reports having NOT received the Covid vaccine. Flu vaccine is not up to date. - Social history:: Smoking status: Patient reports use of chewing tobacco. - Family history:: not pertinent. ROS: 20:12 Cardiovascular: Negative for chest pain, palpitations, and edema, Respiratory: Negative rt for shortness of breath, cough, wheezing, and pleuritic chest pain, Abdomen/GI: Negative for abdominal pain, nausea, vomiting, diarrhea, and constipation, MS/Extremity: Negative for injury and deformity, Skin: Negative for injury, rash, and discoloration, Neuro: Negative for headache, weakness, numbness, tingling, and seizure, Psych: Negative for depression, anxiety, suicide ideation, homicidal ideation, and hallucinations, 20:12 Constitutional: Positive for body aches, chills, fever, 20:12 Eyes: Positive for discharge, redness, vision loss, Exam: 20:12 Constitutional: This is a well developed, well nourished patient who is awake, alert, rt and in no acute distress. Head/Face: Normocephalic, atraumatic. Chest/axilla: Normal chest wall appearance and motion. Nontender with no deformity. No lesions are appreciated. Cardiovascular: Regular rate and rhythm with a normal S1 and S2. No gallops, murmurs, or rubs. Normal PMI, no JVD. No pulse deficits. Respiratory: Lungs have equal breath sounds bilaterally, clear to auscultation and percussion. No rales, rhonchi or wheezes noted. No increased work of breathing, no retractions or nasal flaring. Abdomen/GI: Soft, non-tender, with normal bowel sounds. No distension or tympany. No guarding or rebound. No evidence of tenderness throughout. Skin: Warm, dry with normal turgor. Normal color with no rashes, no lesions, and no evidence of cellulitis. MS/ Extremity: Pulses equal, no cyanosis. Neurovascular intact. Full, normal range of motion. Neuro: Awake and alert, GCS 15, oriented to person, place, time, and situation. Cranial nerves II-XII grossly intact. Motor strength 5/5 in all extremities. Sensory grossly intact. Cerebellar exam normal. Normal gait. 20:12 Eyes: Extraocular muscles are intact, periorbital erythema noted, significant purulent discharge from the eye, eye appears to be chemotic, sluggish pupil reflex. 20:15 ECG was reviewed by the Attending Physician. rt Vital Signs: 19:08 BP 157 / 92; Pulse 112; Resp 22; Temp 101; Pulse Ox 100% ; Weight 88.45 kg; Height 5 vc1 ft. 7 in. ; Pain 7/10; 20:11 BP 143 / 85; Pulse 106; Resp 13; Pulse Ox 100% ; jj7 21:08 BP 135 / 79; Pulse 101; Resp 14; Pulse Ox 96% ; Pain 0/10; jj7 21:40 BP 141 / 78; Pulse 101; Resp 15; Temp 101; Pulse Ox 97% ; jj7 22:53 BP 120 / 68; Pulse 92; Resp 17; Temp 99.5; Pulse Ox 96% ; Pain 1/10; jj7 19:08 Body Mass Index 30.54 (88.45 kg, 170.18 cm) vc1 19:08 Pain Scale: Adult vc1 21:08 Pain Scale: Adult jj7 22:53 Pain Scale: Adult jj7 Procedures: 21:04 Performed Left eye irrigation. Patient apparently has left lower eyelid large sized sp4 stye that is draining purulent debris directly onto the left eyelid. Has significant irritation conjunctivitis both bacterial nature of the left eye no signs of endophthalmitis. Left eye was heavily irrigated with tetracaine, until we observed that no additional purulent discharge she was draining from the stye. The eye was then irrigated with saline. Patient felt improved after irrigation. Patient was given IV antibiotics. Will advise continuation of doxycycline p.o. also added Bactrim p.o. for additional coverage. MDM: 19:28 Patient medically screened. rt 21:03 Differential diagnosis: Corneal ulcer of left eye. Foreign body in Acute iritis of Data sp4 reviewed: vital signs, nurses notes. 21:07 Consideration of Admission/Observation Escalation of care including sp4 admission/observation considered. ED course: After exam and left eye irrigation we see that patient has a moderate-sized stye of the lower eyelid which has drained pus into the space under the left eyelid. Left eye was irrigated out heavily and patient felt improved. Will prescribe pain medication tramadol and ibuprofen also Bactrim DS twice a day for 10 days. Will advise patient to continue doxycycline 100 mg p.o. twice daily, and will also advised patient to continue besifloxacin ophthalmic drops 0.6 % which were prescribed by his excel developer .. At this time patient does not warrant emergent transfer, . 08/28 19:25 Order name: Blood Culture Adult (2) rt 08/28 19:25 Order name: CBC with Diff; Complete Time: 21:03 rt 08/28 19:25 Order name: CMP; Complete Time: 21:03 rt 08/28 19:25 Order name: Lactate w/ 2H reflex if indic.; Complete Time: 21:38 rt 08/28 19:25 Order name: Protime (+inr); Complete Time: 21:03 rt 08/28 19:25 Order name: Ptt, Activated; Complete Time: 21:03 rt 12 20:47 Order name: Glucose, Ancillary Testing; Complete Time: 21:03 EDMS 08/28 19:25 Order name: CT Facial Bones W/ Con \T\ Mpr; Complete Time: 22:33 rt 08/28 19:25 Order name: EKG; Complete Time: 19:30 rt 08/28 19:25 Order name: Accucheck; Complete Time: 20:35 rt 12 19:25 Order name: Cardiac monitoring; Complete Time: :35 rt 08/28 19:25 Order name: EKG - Nurse/Tech; Complete Time: rt 08/28 19:25 Order name: IV Saline Lock - Large Bore; Complete Time: 20: rt 08/28 19:25 Order name: Labs collected and sent; Complete Time: : rt 08/28 19:25 Order name: O2 Per Protocol; Complete Time: : rt 08/28 19:25 Order name: O2 Sat Monitoring; Complete Time: : rt 08/28 19:25 Order name: Vital Signs; Complete Time: :35 rt EC:15 Rate is 113 beats/min. Rhythm is regular, Sinus tachycardia with No ectopy. QRS Jasper is rt Normal. WI interval is normal. QRS interval is normal. QT interval is normal. No Q waves. T waves are Normal. No ST changes noted. Administered Medications: 20:10 Drug: Cefepime IVPB 2 grams IVPB at 200 ml/hr once over 30 mins; (mix in NS 100 mL) jj7 Route: IVPB; Rate: 200 ml/hr; Infused Over: 30 mins; Site: right antecubital; 20:55 Follow up: IV Status: Completed infusion 20:10 Drug: NS 0.9% IV 1000 ml IV at 1 bolus Per protocol; 1000 mL bolus Route: IV; Rate: 1 j7 bolus; Site: right antecubital; 21:06 Follow up: IV Status: Completed infusion j7 21:01 Drug: morphine IVP or IV 4 mg IVP once over 4 mins Route: IVP; Infused Over: 4 mins; jj7 Site: right antecubital; 21:41 Follow up: Response: Marked relief of symptoms 7 21:02 Drug: vancoMYCIN IVPB 1 grams IVPB once over 2 hrs Route: IVPB; Infused Over: 2 hrs; jj7 Site: right antecubital; 21:20 Follow up: IV Pause: 08/28/2023 21:20; IV Pause Reason: Patient to CT j 22:56 Follow up: IV Status: Completed infusion j7 21:02 Drug: Ondansetron IVP 4 mg IVP once; over 2 minutes Route: IVP; Site: right antecubital;jj7 21:41 Follow up: Response: No adverse reaction jj7 21:02 Drug: Ketorolac IVP 30 mg IVP once Route: IVP; Site: right antecubital; jj7 21:41 Follow up: Response: Marked relief of symptoms jj7 21:03 Drug: Lidocaine Infiltration (1 %) 5 mg Infiltration once {Note: ADMIN BY DR LOYD.} jj7 Route: Infiltration; 21:19 Drug: Trimethoprim-Sulfamethoxazole PO (160 mg-800 mg (DS) 1 tablet PO once Route: PO; jj7 21:42 Follow up: Response: No adverse reaction jj7 21:41 Drug: Acetaminophen PO 1000 mg PO once Route: PO; jj7 22:52 Follow up: Response: Temperature is decreased jj7 21:41 Drug: Ibuprofen PO 800 mg PO once Route: PO; jj7 22:52 Follow up: Response: Temperature is decreased jj7 Disposition Summary: 08/28/23 21:09 Discharge Ordered Problem: new sp4 Symptoms: have improved sp4 Condition: Stable sp4 Diagnosis - Hordeolum externum left lower eyelid sp4 - Other mucopurulent conjunctivitis, left eye sp4 Followup: sp4 - With: Private Physician - When: 5 - 6 days - Reason: Recheck today's complaints Discharge Instructions: - Discharge Summary Sheet sp4 - [facility] sp4 Forms: - Patient Portal Instructions sp4 Prescriptions: - Ibuprofen 800 mg Oral Tablet - take 1 tablet ORAL route every 8 hours As needed take with food; 30 tablet; sp4 Refills: 0, Product Selection Permitted - Tramadol 50 mg Oral tablet - take 1 tablet ORAL route every 8 hours as needed; 20 tablet; Refills: 0, sp4 Product Selection Permitted - Bactrim DS 800-160 mg Oral Tablet - take 1 tablet ORAL route every 12 hours for 10 days; 20 tablet; Refills: 0, sp4 Product Selection Permitted Signatures: Dispatcher [employer] Daria Guillen RN RN vc1 Eleni Cartwright RN RN jj7 Santi Hargrove MD MD rt Jose Acosta MD MD sp4
[2023-08-28] MEDS ORDERED: SMZ./TMP. 800/160 MG TABLET ONE (21:31)
--- NOTE | 2023-08-28 21:47 | RAD REPORT ---
EXAM DESCRIPTION: CT - CTFBWCON CLINICAL HISTORY: orbital cellulitis Pain and swelling COMPARISON: No comparisons TECHNIQUE: Axial 2 mm thick images of the face were obtained with sagittal and coronal reconstructio n images. All CT scans are performed using dose optimization technique as appropriate and may include automated exposure control or mA/KV adjustment according to patient size. FINDINGS: There is mild to moderate preseptal soft tissue swelling seen. Mild fluid is seen along th e inferior aspect of the orbit. Soft tissue inflammation is also seen extending laterally anterior to the zygoma.No significant proptosis. Retrobulbar fat is unremarkable.No vitreous abnormality is seen. Symmetric extra-ocular muscles. Visualized paranasal sinuses and mastoids are clear. IMPRESSION: Findings are suggestive of moderate left-sided preseptal cellulitis.No orbital celluliti s findings identified.
[2023-08-28] MEDS ORDERED: IBUPROFEN 400 MG TAB ONE (21:54)
[2023-08-28] MEDS ORDERED: ACETAMINOPHEN 500 MG TAB ONE (21:54)
[2023-08-28 23:24] VITALS: BP 120/68; TEMP 99.5; O2SAT 96
== END 2023-08-28 22:56 | disposition home or self-care (01) ==
LOC: ER 18:47
DX: H00.015 Hordeolum externum left lower eyelid (principal); H10.022 Other mucopurulent conjunctivitis, left eye
CPT/HCPCS: 96365; 96367; 93005; 87040 ×2; 85025; 36415; 85610; 82947; 83605; 85730; 80053; 70487; 76377; 96375; 99285; Q9967; J0692; J2405; J7050; J7030; J2001

== ENCOUNTER 2023-08-31 00:47 | Emergency (ER) | payer OTHER ==
--- OUTSIDE RECORDS SUMMARY | 2023-08-31 00:50 | XMS REPORT | Continuity of Care Document ---
Author Name Unknown Address [address] [place] [address] [facility] Address 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 Role Phone [facility], [facility] Primary Care Physician U TRISTIN Hunter Attending Clinician Unavailable Tristin Hinojosa DO Attending Clinician [phone] VALENTINE HANEY Attending Clinician Unavailab Valentine Dahl DO Attending Clinician [phone] CHANDNI NOWAK Attending Clinician Unavailable Chandni Nowak NP Attending Clinician [phone] SUJATA LOUIS Attending Clinician Unavailable EVERETT GAFFNEY Attending Clinician Unavailable Payers Payer Name Policy Type Policy Number Effective Date Expirati on Date Source [facility] CCN [id number] 2008 00:00:00 [facility] CCN [id number] 2008 00:00:00 2023 00:00:00 Allergies, Adverse Reactions, Alerts Allergy Name Allergy Type Status Severity Reaction(s) Onset Date Inactive Date Treating Clinician Comments Source NO KNOWN ALLERGIE S Drug Class Active [facility] Social History Social Habit Start Date Stop Date Quantity Comments Source Sexual orientation [facility] Exposure to SARS-CoV-2 (event) 2022-08-21 00:00:00 2022-08-31 12:37:00 Not sure [facility] Sex Assigned At 1985 00:00:00 1985 00:00:00 [facility] Smoking Status Start Date Stop Date Source Tobacco smoking consumption unknown [facility] Medications Ordered Medication Name Filled Medication Name Start Date Stop Date Current Medication? Ordering Clinician Indication Dosage Frequency Signature (SIG) Comments Components Source NaCl 0.9% (NS) bolus infusion 1,000 mL 03-07 17:00: 00 03-07 18:52 :00 No 1000mL at 999 mL/hr, 1,000 mL, IV Infusion, ONCE, 1 dose, On [place] 03/07/23 at 1200, [facility] ondansetron (ZOFRAN (PF)) injection 4 mg 03-07 16:15: 00 03-07 16:39 :00 No 4mg 4 mg, Slow IV Push, ONCE, 1 dose, On Linette 03/07/23 at 1115, [facility] benzonatate 100 mg capsule 2021-09 00:00: 00 Yes [id number] 200mg Take 2 capsules by mouth 3 (three) times daily as needed for Cough. [facility] benzonatate 100 mg capsule 2021-09 00:00: 00 Yes [id number] 200mg Take 2 capsules by mouth 3 (three) times daily as needed for Cough. [facility] benzonatate 100 mg capsule 2021-09 00:00: 00 Yes [id number] 200mg Take 2 capsules by mouth 3 (three) times daily as needed for Cough. [facility] Vital Signs Vital Name Observation Time Observation Value Comments Shamar roque Systolic blood pressure 2023-08-26 16:11:00 149 mm[Hg] [facility] Diastolic blood pressure 2023-08-26 16:11:00 91 mm[Hg] [facility] Heart rate 2023-08-26 16:11:00 79 /min [facility] Body temperature 2023-08-26 16:11:00 37.39 Abby [facility] Respiratory rate 2023-08-26 16:11:00 14 /min [facility] Body height 2023-08-26 16:11:00 170.2 cm [facility] Body weight 2023-08-26 16:11:00 88.451 kg [facility] BMI 2023-08-26 16:11:00 30.54 kg/m2 [facility] Oxygen saturation in Arterial blood by Pulse oximetry 2023-08-26 16:11:00 100 /min [facility] Systolic blood pressure 2023-03-07 18:53:00 129 mm[Hg] [facility] Diastolic blood pressure 2023-03-07 18:53:00 72 mm[Hg] [facility] Heart rate 2023-03-07 18:53:00 73 /min [facility] Respiratory rate 2023-03-07 18:53:00 16 /min [facility] Oxygen saturation in Arterial blood by Pulse oximetry 2023-03-07 18:53:00 96 /min [facility] Body temperature 2023-03-07 16:00:00 37.39 Abby [facility] Body height 2023-03-07 16:00:00 170.2 cm [facility] Body weight 2023-03-07 16:00:00 86.183 kg [facility] BMI 2023-03-07 16:00:00 29.76 kg/m2 [facility] Systolic blood pressure 2022-08-31 18:38:00 141 mm[Hg] [facility] Diastolic blood pressure 2022-08-31 18:38:00 89 mm[Hg] [facility] Heart rate 2022-08-31 18:38:00 86 /min [facility] Body temperature 2022-08-31 18:38:00 37.39 Abby [facility] Respiratory rate 2022-08-31 18:38:00 16 /min [facility] Body height 2022-08-31 18:38:00 170.2 cm [facility] Body weight 2022-08-31 18:38:00 83.915 kg [facility] BMI 2022-08-31 18:38:00 28.98 kg/m2 [facility] Oxygen saturation in Arterial blood by Pulse oximetry 2022-08-31 18:38:00 100 /min [facility] Procedures Procedure Date / Time Performed Performing Clinicia n Source CONSENT/REFUSAL FOR DIAGNOSIS AND TREATMENT 2023-08-26 15:44:22 Doctor Unassigned, [place] [facility] EKG-12 LEAD 2023-03-07 18:45:52 [facility] 2023-03-07 16:26:00 Valentine Haney [facility] TROPONIN I 2023-03-07 16:26:00 Valentine Haney [facility] COMP. METABOLIC PANEL ([id number]) 2023-03-07 16:26:00 Valentine Haney [facility] CBC WITH DIFF 2023-03-07 16:26:00 [facility]/REFUSAL FOR DIAGNOSIS AND TREATMENT 2023-03-07 15:59:48 Doctor Unassigned, [place] [facility] NOTICE OF PRIVACY PRACTICES 2022-08-31 18:36:45 Doctor Unassigned, [place] [facility] CONSENT/REFUSAL FOR DIAGNOSIS AND TREATMENT 2022-08-31 18:34:37 Doctor Unassigned, [place] [facility] Encounters Start Date/Time End Date/Time Encounter Type Admission Type Attending [facility] Care Facility Care Department Encounter ID Source 2023-08-26 10:12:00 2023-08-26 11:32:00 Emergency X HINOJOSATRISTIN [facility] ERT [id number] [facility] 2023-08-26 10:12:00 2023-08-26 11:32:00 Emergency Tristin Hinojosa [facility] [id number] [facility] 2023-03-07 11:15:00 2023-03-07 13:57:00 Emergency X VALENTINE HANEY [facility] ERT [id number] [facility] 2023-03-07 11:15:00 2023-03-07 13:57:00 Emergency Valentine Haney [facility] [id number] [facility] 2022-08-31 12:40:00 2022-08-31 13:39:00 Emergency X CHANDNI NOWAK [facility] ERT [id number] [facility] 2022-08-31 12:40:00 2022-08-31 13:39:00 Emergency Chandni Nowak G [facility] [id number] [facility] 2021-08-06 19:02:00 2021-08-06 23:01:00 Emergency SUJATA BARNES [id number] [facility] 2021-05-30 09:54:00 2021-05-30 14:25:00 Emergency EVERETT PARSONS [id number]
[2023-08-31] MEDS ORDERED: NA CHLORIDE 0.9% 1,000 ML ONE (01:38)
[2023-08-31] MEDS ORDERED: ONDANSETRON 4 MG/2 ML VIAL ONE (01:38)
[2023-08-31 02:00] LABS: Absolute Lymphocytes (CBC) 1.6 K/uL (0.7-4.9); Hematocrit 42.3 % (39.6-49.0); MCV 90.5 fL (80-100); MPV 7.4 fL (7.6-11.3); Platelets 240 thou/uL (152-406); RBC Red Blood Cell Count 4.67 M/uL (4.33-5.43)
[2023-08-31 02:14] LABS: Albumin 3.5 g/dL (3.4-5.0); Bilirubin Total 0.3 mg/dL (0.2-1.0); Protein, Total 7.7 g/dL (6.4-8.2)
[2023-08-31 02:24] LABS: Potassium 3.8 mEq/L (3.5-5.1)
--- NOTE | 2023-08-31 02:33 | ER ---
Nurse's Notes [facility] Name: Mat Jenkins Age: 38 yrs Sex: Male : 1985 Arrival Date: 08/31/2023 Time: 00:47 Bed 15 Private MD: Vaishali Dela Cruz Diagnosis: Vomiting;Ocular pain, left eye-WITH SUBCONJUCTIVAL HEMORRHAGE Presentation: 08/31 01:07 Chief complaint: Patient states: vomiting x 3 episodes and feeling bad. onset 3 hours pf1 ago. Patient stated was treated here recently for left eye infection and is currently taking 4 antibiotics. Coronavirus screen: Vaccine status: Patient reports being unvaccinated. Client denies travel out of the [place] in the last 14 days. At this time, the client does not indicate any symptoms associated with coronavirus-19. Ebola Screen: Patient negative for fever greater than or equal to 101.5 degrees Fahrenheit, and additional compatible Ebola Virus Disease symptoms. Initial Sepsis Screen: Does the patient meet any 2 criteria? No. Patient's initial sepsis screen is negative. Does the patient have a suspected source of infection? No. Patient's initial sepsis screen is negative. Risk Assessment: Do you want to hurt yourself or someone else? Patient reports no desire to harm self or others. 01:07 Method Of Arrival: Ambulatory pf1 01:07 Acuity: SANDY 3 pf1 01:18 Onset of symptoms was August 31, 2023. km8 Triage Assessment: 01:18 GI: Reports. km8 Historical: - Allergies: 01:12 No Known Allergies; pf1 - PMHx: 01:12 Crohn's; Hernia; PTSD; Tonsillitis; pf1 - PSHx: 01:12 Appendectomy; Tonsillectomy; pf1 - Immunization history:: Adult Immunizations not up to date, Client reports having NOT received the Covid vaccine. Last tetanus immunization: < 5 years ago Flu vaccine is not up to date. - Social history:: Smoking status: Patient denies any tobacco usage or history of. Patient uses alcohol, occasionally. Patient/guardian denies using street drugs. Screenin:14 [facility] ED Fall Risk Assessment (Adult) History of falling in the last 3 months, km8 including since admission No falls in past 3 months (0 pts) Confusion or Disorientation No (0 pts) Intoxicated or Sedated No (0 pts) Impaired Gait No (0 pts) Mobility Assist Device Used No (0 pt) Altered Elimination No (0 pt) Score/Fall Risk Level 0 - 2 = Low Risk Oriented to surroundings, Maintained a safe environment, Educated pt \T\ family on fall prevention, incl call for assistance when getting out of bed, Assessed \T\ reinforced patient's understanding of fall precautions. Abuse screen: Denies threats or abuse. Denies injuries from another. Nutritional screening: No deficits noted. Tuberculosis screening: No symptoms or risk factors identified. Assessment: 01:14 General: Appears in no apparent distress. uncomfortable, Behavior is calm, cooperative, km8 appropriate for age. Pain:. Neuro: [place] Agitation-Sedation Scale (RASS): 0 - Alert and Calm Level of Consciousness is awake, alert, obeys commands, Oriented to person, place, time, situation. Cardiovascular: Denies chest pain, shortness of breath, Capillary refill < 3 seconds Patient's skin is warm and dry. Respiratory: Airway is patent Respiratory effort is even, unlabored, Respiratory pattern is regular, symmetrical. GI: Abdomen is flat, Bowel sounds present X 4 quads. Abd is non tender. : No signs and/or symptoms were reported regarding the genitourinary system. EENT: Sclera/Cornea are reddened in outer aspect of conjuctiva of left eye. Derm: Skin is intact, is healthy with good turgor, Skin is dry, Skin is pink, warm \T\ dry. normal, Skin temperature is warm swelling around left eye with swelling to left side of face. Musculoskeletal: No signs and/or symptoms reported regarding the musculoskeletal system. Circulation, motion, and sensation intact. Range of motion: intact in all extremities. 02:00 Reassessment: Patient appears in no apparent distress at this time. No changes from km8 previously documented assessment. Patient and/or family updated on plan of care and expected duration. Pain level reassessed. Patient is alert, oriented x 3, equal unlabored respirations, skin warm/dry/pink. Vital Signs: 01:07 BP 147 / 107; Pulse 7; Resp 16; Temp 97.1; Pulse Ox 98% on R/A; Weight 88.45 kg; Height pf1 5 ft. 7 in. ; 01:30 BP 127 / 89; Pulse 74; Resp 16; Pulse Ox 95% on R/A; km8 02:00 BP 115 / 89; Pulse 70; Resp 16; Pulse Ox 97% on R/A; km8 01:07 Body Mass Index 30.54 (88.45 kg, 170.18 cm) pf1 Samanta Coma Score: 01:14 Eye Response: spontaneous(4). Motor Response: obeys commands(6). Verbal Response: km8 oriented(5). Total: 15. ED Course: 00:53 Patient arrived in ED. es 00:53 Vaishali Dela Cruz is Private Physician. es 01:11 Steffi Larose, RN is Primary Nurse. km8 01:12 Triage completed. pf1 01:14 Patient has correct armband on for positive identification. Bed in low position. Call km8 light in reach. Side rails up X 1. Pulse ox on. NIBP on. Door closed. Noise minimized. Lights dimmed. 01:14 No provider procedures requiring assistance completed. Patient maintains SpO2 km8 saturation greater than 95% on room air. 01:16 Cullen Flaherty MD is Attending Physician. nas 01:19 Arm band placed on right wrist. km8 01:41 Comprehensive Metabolic Panel Sent. km8 01:41 CBC with Diff Sent. km8 01:41 Lipase Sent. km8 01:41 Inserted saline lock: 20 gauge in right antecubital area, using aseptic technique. km8 Blood collected. 02:33 Vaishali Dela Cruz is Referral Physician. nas 02:33 Abhay Li MD is Referral Physician. [facility] 02:50 Provided Education on: d/c teaching. km8 02:50 IV discontinued, intact, bleeding controlled, No redness/swelling at site. Pressure km8 dressing applied. Administered Medications: 01:41 Drug: Ondansetron IVP 4 mg IVP once; over 2 minutes Route: IVP; Site: right antecubital;km8 02:44 Follow up: Response: No adverse reaction km8 01:41 Drug: NS 0.9% IV 1000 ml IV at 1 bolus Per protocol; 1000 mL bolus Route: IV; Rate: 1 km8 bolus; Site: right antecubital; 02:50 Follow up: IV Status: Completed infusion; IV Intake: 900ml km8 Medication: 01:14 VIS not applicable for this client. km8 Intake: 02:50 IV: 900ml; Total: 900ml. km8 Outcome: 02:33 Discharge ordered by . nas 02:50 Discharged to home ambulatory, km8 02:50 Condition: good 02:50 Discharge instructions given to patient, Instructed on discharge instructions, follow up and referral plans. medication usage, Demonstrated understanding of instructions, follow-up care, medications, Prescriptions given X 1, 02:51 Patient left the ED. km8 Signatures: Cullen Flaherty MD MD cha Salyer, Edna es Finley, Pamala, RN RN pf1 Steffi Larose, RN RN km8
--- NOTE | 2023-08-31 02:34 | EDPHYS ---
Physician Documentation [facility] Name: Mat Jenkins Age: 38 yrs Sex: Male : 1985 Arrival Date: 08/31/2023 Time: 00:47 Bed 15 Private MD: Counts Include 234 Beds At [facility] ED Physician Cullen Flaherty HPI: 08/31 01:19 This 38 yrs old Male presents to ER via Ambulatory with complaints of nas Vomiting, FEEL BAD. 01:19 The patient presents to the emergency department with nausea, vomiting. Onset: The nas symptoms/episode began/occurred 1 day(s) ago. Possible causes: unknown. The symptoms are aggravated by nothing. The symptoms are alleviated by nothing. Associated signs and symptoms: The patient has no apparent associated signs or symptoms. Severity of symptoms: At their worst the symptoms were mild in the emergency department the symptoms are unchanged. The patient has not experienced similar symptoms in the past. Historical: - Allergies: 01:12 No Known Allergies; pf1 - PMHx: 01:12 Crohn's; Hernia; PTSD; Tonsillitis; pf1 - PSHx: 01:12 Appendectomy; Tonsillectomy; pf1 - Immunization history:: Adult Immunizations not up to date, Client reports having NOT received the Covid vaccine. Last tetanus immunization: < 5 years ago Flu vaccine is not up to date. - Social history:: Smoking status: Patient denies any tobacco usage or history of. Patient uses alcohol, occasionally. Patient/guardian denies using street drugs. ROS: 01:20 Constitutional: Negative for fever, chills, and weight loss, Eyes: Negative for injury, nas pain, redness, and discharge, ENT: Negative for injury, pain, and discharge, Neck: Negative for injury, pain, and swelling, Cardiovascular: Negative for chest pain, palpitations, and edema, Respiratory: Negative for shortness of breath, cough, wheezing, and pleuritic chest pain, Back: Negative for injury and pain, : Negative for injury, bleeding, discharge, and swelling, MS/Extremity: Negative for injury and deformity, Skin: Negative for injury, rash, and discoloration, Neuro: Negative for headache, weakness, numbness, tingling, and seizure, Psych: Negative for depression, anxiety, suicide ideation, homicidal ideation, and hallucinations, Allergy/Immunology: Negative for hives, rash, and allergies, Endocrine: Negative for neck swelling, polydipsia, polyuria, polyphagia, and marked weight changes, Hematologic/Lymphatic: Negative for swollen nodes, abnormal bleeding, and unusual bruising, 01:20 Abdomen/GI: Positive for nausea and vomiting, Exam: 01:20 Constitutional: This is a well developed, well nourished patient who is awake, alert, nas and in no acute distress. Head/Face: Normocephalic, atraumatic. Eyes: Pupils equal round and reactive to light, extra-ocular motions intact. Lids and lashes normal. Conjunctiva and sclera are non-icteric and not injected. Cornea within normal limits. Periorbital areas with no swelling, redness, or edema. ENT: Nares patent. No nasal discharge, no septal abnormalities noted. Tympanic membranes are normal and external auditory canals are clear. Oropharynx with no redness, swelling, or masses, exudates, or evidence of obstruction, uvula midline. Mucous membranes moist. Neck: Trachea midline, no thyromegaly or masses palpated, and no cervical lymphadenopathy. Supple, full range of motion without nuchal rigidity, or vertebral point tenderness. No Meningismus. Chest/axilla: Normal chest wall appearance and motion. Nontender with no deformity. No lesions are appreciated. Cardiovascular: Regular rate and rhythm with a normal S1 and S2. No gallops, murmurs, or rubs. Normal PMI, no JVD. No pulse deficits. Respiratory: Lungs have equal breath sounds bilaterally, clear to auscultation and percussion. No rales, rhonchi or wheezes noted. No increased work of breathing, no retractions or nasal flaring. Abdomen/GI: Soft, non-tender, with normal bowel sounds. No distension or tympany. No guarding or rebound. No evidence of tenderness throughout. Back: No spinal tenderness. No costovertebral tenderness. Full range of motion. Male : Normal genitalia with no discharge or lesions. Skin: Warm, dry with normal turgor. Normal color with no rashes, no lesions, and no evidence of cellulitis. MS/ Extremity: Pulses equal, no cyanosis. Neurovascular intact. Full, normal range of motion. Neuro: Awake and alert, GCS 15, oriented to person, place, time, and situation. Cranial nerves II-XII grossly intact. Motor strength 5/5 in all extremities. Sensory grossly intact. Cerebellar exam normal. Normal gait. Psych: Awake, alert, with orientation to person, place and time. Behavior, mood, and affect are within normal limits. Vital Signs: 01:07 BP 147 / 107; Pulse 7; Resp 16; Temp 97.1; Pulse Ox 98% on R/A; Weight 88.45 kg; Height pf1 5 ft. 7 in. ; 01:30 BP 127 / 89; Pulse 74; Resp 16; Pulse Ox 95% on R/A; km8 02:00 BP 115 / 89; Pulse 70; Resp 16; Pulse Ox 97% on R/A; km8 01:07 Body Mass Index 30.54 (88.45 kg, 170.18 cm) pf1 Samanta Coma Score: 01:14 Eye Response: spontaneous(4). Motor Response: obeys commands(6). Verbal Response: km8 oriented(5). Total: 15. MDM: 01:16 Patient medically screened. [facility] 01:21 Differential diagnosis: Nonspecific abd pain, gastritis, cholecystitis, pancreatitis. [facility] Data reviewed: vital signs, nurses notes, lab test result(s), CBC, electrolytes, hepatic panel. Consideration of Admission/Observation Escalation of care including admission/observation considered. I considered the following discharge prescriptions or medication management in the emergency department Medications were administered in the Emergency Department. See MAR. Test considered but Not performed: EKG: NO EKG. Care significantly affected by the following chronic conditions: CROHNS, HERNIA, PTSD, TONSILLITIS. 08/31 01:19 Order name: CBC with Diff; Complete Time: 02:13 [facility] 08/31 01:19 Order name: Comprehensive Metabolic Panel; Complete Time: 02:33 [facility] 08/31 01:19 Order name: Lipase; Complete Time: 02:33 [facility] Administered Medications: 01:41 Drug: Ondansetron IVP 4 mg IVP once; over 2 minutes Route: IVP; Site: right antecubital;km8 02:44 Follow up: Response: No adverse reaction [facility] 01:41 Drug: NS 0.9% IV 1000 ml IV at 1 bolus Per protocol; 1000 mL bolus Route: IV; Rate: 1 km8 bolus; Site: right antecubital; 02:50 Follow up: IV Status: Completed infusion; IV Intake: 900ml 8 Disposition Summary: 08/31/23 02:33 Discharge Ordered Notes: Location: Home [facility] Problem: new nas Symptoms: have improved nas Condition: Stable nas Diagnosis - Vomiting nas - Ocular pain, left eye - WITH SUBCONJUCTIVAL HEMORRHAGE nas Followup: nas - With: Affairs, Veterans - When: 2 - 3 days - Reason: Recheck today's complaints, Continuance of care, Re-evaluation by your physician Followup: nas - With: Abhay Li MD - When: 2 - 3 days - Reason: Recheck today's complaints, Re-evaluation by your physician Discharge Instructions: - Discharge Summary Sheet nas - Subconjunctival Hemorrhage nas - Vomiting, Adult nas Forms: - Medication Reconciliation Form nas - Thank You Letter nas - Antibiotic Education nas - Prescription Opioid Use nas - Patient Portal Instructions nas - Leadership Thank You Letter nas Prescriptions: - ondansetron 4 mg Oral Tablet,disintegrating - take 1 tablet ORAL route every 6-8 hours for 5 days; 20 tablet; Refills: 0, nas Product Selection Permitted Signatures: Dispatcher [employer] Cullen Lipscomb MD MD cha Finley, Pamala, RN RN pf1 Steffi Larose RN RN km8
[2023-08-31 03:21] VITALS: TEMP 97.1
[2023-08-31 03:36] VITALS: BP 115/89; O2SAT 97
== END 2023-08-31 02:51 | disposition home or self-care (01) ==
LOC: ER 00:47 → EEVIPCON 00:47 → ER 02:51
DX: R11.10 Vomiting, unspecified (principal); H11.32 Conjunctival hemorrhage, left eye; H57.12 Ocular pain, left eye
CPT/HCPCS: 96361; 85025; 36415; 83690; 80053; 96374; 99285; J2405; J7030

== ENCOUNTER 2023-12-31 02:00 | Emergency (ER) | payer OTHER ==
--- OUTSIDE RECORDS SUMMARY | 2023-12-31 02:04 | XMS REPORT | Continuity of Care Document ---
Author Name Unknown Address [address] [facility] [address] [place] [address] [facility] thconnect Address [address] [facility] [address] [place] [address] Care Team Providers Care Tax Processor Name Role Phone [facility], [facility] Primary Care Physician U JORGE Hunter Attending Clinician Unavailable Jorge Hinojosa DO Attending Clinician [phone] VALENTINE HANEY Attending Clinician Unavailab Valentine Dahl DO Attending Clinician [phone] JASMYNE NOWAK Attending Clinician Unavailable Jasmyne Nowak NP Attending Clinician [phone] Payers Payer Name Policy Type Policy Number Effective Date Expirati on Date Source [facility] [id number] 2008 00:00:00 [facility] [id number] 2008 00:00:00 2023 00:00:00 Allergies, Adverse Reactions, Alerts Allergy Name Allergy Type Status Severity Reaction(s) Onset Date Inactive Date Treating Clinician Comments Source NO KNOWN ALLERGIE S Drug Class Active [facility] Social History Social Habit Start Date Stop Date Quantity Comments Source Sexual orientation U [facility] Exposure to SARS-CoV-2 (event) 2022-08-21 00:00:00 2022-08-31 12:37:00 Not sure [facility] Sex Assigned At 1985 00:00:00 1985 00[birth year]00:00 [facility] Smoking Status Start Date Stop Date Source Tobacco smoking consumption unknown [facility] Medications Ordered Medication Name Filled Medication Name [...] 1 dose, On Linette 03/07/23 at 1115, [facility] benzonatate 100 mg capsule 2021-09 00:00: 00 Yes [id number] 200mg Take 2 capsules by mouth 3 (three) times daily as needed for Cough. [facility] Vital Signs Vital Name Observation Time Observation Value Comments S ource Systolic blood pressure 2023-08-26 16:11:00 149 mm[Hg] [facility] Diastolic blood pressure 2023-08-26 16:11:00 91 mm[Hg] [facility] Heart rate 2023-08-26 16:11:00 79 /min [facility] Body temperature 2023-08-26 16:11:00 37.39 Abby [facility] Respiratory rate 2023-08-26 16:11:00 14 /min [facility] Body height 2023-08-26 16:11:00 170.2 cm [facility] Body weight 2023-08-26 16:11:00 88.451 kg [facility] BMI 2023-08-26 16:11:00 30.54 kg/m2 [facility] Oxygen saturation in Arterial blood by Pulse oximetry 2023-08-26 16:11:00 100 /min [facility] Systolic blood pressure 2023-03-07 18:53:00 129 mm[Hg] [facility] Diastolic blood pressure 2023-03-07 18:53:00 72 mm[Hg] [facility] Heart rate 2023-03-07 18:53:00 73 /min [facility] Res[facility] 2023-03-07 18:53:00 16 /min [facility] Oxygen saturation in Arterial blood by Pulse oximetry 2023-03-07 18:53:00 96 /min [facility] Body temperature 2023-03-07 16:00:00 37.39 Abby [facility] Body height 2023-03-07 16:00:00 170.2 cm [facility] Body weight 2023-03-07 16:00:00 86.183 kg [facility] BMI 2023-03-07 16:00:00 29.76 kg/m2 [facility] Systolic blood pressure 2022-08-31 18:38:00 141 mm[Hg] [facility] Diastolic blood pressure 2022-08-31 18:38:00 89 mm[Hg] [facility] Heart rate 2022-08-31 18:38:00 86 /min [facility] Body temperature 2022-08-31 18:38:00 37.39 Abby [facility] Respiratory rate 2022-08-31 18:38:00 16 /min [facility] Body height 2022-08-31 18:38:00 170.2 cm [facility] Body weight 2022-08-31 18:38:00 83.915 kg [facility] BMI 2022-08-31 18:38:00 28.98 kg/m2 [facility] Oxygen saturation in Arterial blood by Pulse oximetry 2022-08-31 18:38:00 100 /min [facility] Procedures Procedure Date / Time Performed Performing Clinicia n Source CONSENT/REFUSAL FOR DIAGNOSIS AND TREATMENT 2023-08-26 15:44:22 Doctor Unassigned, [place] [facility] EKG-12 LEAD 2023-03-07 18:45:52 [facility] 2023-03-07 16:26:00 Jose Alejandro, [facility] 2023-03-07 16:26:00 Valentine Haney Un [facility] COMP. METABOLIC PANEL ([id number]) 2023-03-07 16:26:00 Valentine Haney [facility] CBC WITH DIFF 2023-03-07 16:26:00 [facility] CONSENT/REFUSAL FOR DIAGNOSIS AND TREATMENT 2023-03-07 15:59:48 Doctor Unassigned, [place] [facility] NOTICE OF PRIVACY PRACTICES 2022-08-31 18:36:45 Doctor Unassigned, [place] [facility] CONSENT/REFUSAL FOR DIAGNOSIS AND TREATMENT 2022-08-31 18:34:37 Doctor Unassigned, [place] [facility] Encounters Start Date/Time End Date/Time Encounter Type Admission Type Attending [facility] Facility Care Department Encounter ID Source 2023-08-26 10:12:00 2023-08-26 11:32:00 Emergency X HINOJOSAJORGE [facility] ERT [id number] [facility] 2023-08-26 10:12:00 2023-08-26 11:32:00 Emergency Hinojosa Jorge [facility] [id number] [facility] 2023-03-07 11:15:00 2023-03-07 13:57:00 Emergency X VALENTINE HANEY [facility] ERT [id number] [facility] 2023-03-07 11:15:00 2023-03-07 13:57:00 Emergency Valentine Haney [facility] [id number] [facility] 2022-08-31 12:40:00 2022-08-31 13:39:00 Emergency X JASMYNE NOWAK [facility] ERT [id number] [facility] 2022-08-31 12:40:00 2022-08-31 13:39:00 Emergency Jasmyne Nowak [facility] [id number] [facility]
--- NOTE | 2023-12-31 04:18 | ER ---
Nurse's Notes [facility] Name: Mat Jenkins Age: 38 yrs Sex: Male : 1985 Arrival Date: 12/31/2023 Time: 02:00 Bed 13 Private MD: Diagnosis: Presentation: 12/30 02:25 Chief complaint: Patient states: Hernia repair Saturday at the [place] and has had pain since. cm10 Pt reports that the pain got worse tonight. Coronavirus screen: Client denies travel out of the [place] in the last 14 days. At this time, the client does not indicate any symptoms associated with coronavirus-19. Ebola Screen: Patient denies travel to an Ebola-affected area in the 21 days before illness onset. No symptoms or risks identified at this time. Initial Sepsis Screen: Does the patient meet any 2 criteria? HR > 90 bpm. Does the patient have a suspected source of infection? No. Patient's initial sepsis screen is negative. Risk Assessment: Do you want to hurt yourself or someone else? Patient reports no desire to harm self or others. Onset of symptoms was December 31, 2023. 02:25 Method Of Arrival: Wheelchair cm10 02:25 Acuity: SANDY 3 cm10 Historical: - Allergies: 02:26 No Known Allergies; cm10 - PMHx: 02:26 Crohn's; Hernia; PTSD; Tonsillitis; cm10 - PSHx: 02:26 Appendectomy; Tonsillectomy; cm10 - Immunization history:: Adult Immunizations up to date. - Infectious Disease History:: Denies. - Social history:: Smoking status: Patient denies any tobacco usage or history of. - Family history:: not pertinent. Assessment: 03:24 Reassessment: ATTEMPTED TO START AN IV. PT'S FATHER REFUSED AND STATED SCREAMING "YOU ha1 GUYS NEED TO MOVE FASTER [facility]. 03:29 Reassessment: Pt's father seen taking patient out of the ED. States that [facility]10 [facility]. Provider made aware. Vital Signs: 02:25 BP 146 / 114; Pulse 100; Resp 18; Temp 97.6(O); Pulse Ox 97% on R/A; Weight 86.18 kg; cm10 Height 5 ft. 7 in. ; Pain 10/10; 02:25 Body Mass Index 29.76 (86.18 kg, 170.18 cm) cm10 02:25 Pain Scale: Adult cm10 ED Course: 02:04 Patient arrived in ED. ra3 02:11 Jose Acosta MD is Attending Physician. sp4 02:26 Triage completed. cm10 02:26 Arm band placed on Patient placed in an exam room, on a stretcher. cm10 Administered Medications: 04:10 Not Given (Patient Eloped): [id number] mg IVP once; dilute with 10 mL 0.9% NaCl; give vc1 over 2 minutes 04:11 Not Given (Patient Eloped): haloperidol2.5 mg/50 ml 2.5 mg IVP once; Place patient on a vc1 shelter monitor 04:11 Not Given (Patient Eloped): ns 0.9% 1000 ml IV at 1 bolus Per protocol; 1000 mL bolus vc1 04:11 Not Given (Patient Eloped): TORadol - [id number] mg IVP once vc1 04:12 Not Given (Patient Eloped): morphineor iv 8 mg IVP once over 4 mins vc1 04:12 Not Given (Patient Eloped): ondansetron 4 mg IVP once; over 2 minutes vc1 Outcome: 03:29 Eloped from patient exam room, after seeing physician Time discovered patient gone: vc1 December 31, 2023 at 03:29 03:29 Patient left the ED. vc1 Signatures: Daria Watkins RN RN vc1 Barbie Aj RN RN ha1 Jose Acosta MD MD sp4 Elizabet Cardenas RN RN cm10 Jerrica Meek ra3 Corrections: (The following items were deleted from the chart) 04:14 02:45 Eloped from patient exam room, after seeing physician Time discovered patient vc1 gone: December 31, 2023 at 02:45 vc1 04:16 03:29 Eloped from patient exam room, after seeing physician Time discovered patient vc1 gone: December 31, 2023 at 03:29 vc1 04:17 02:45 Reassessment: ATTEMPTED TO START AN IV. PT'S FATHER REFUSED AND STATED SCREAMING ha1 "YOU GUYS NEED TO MOVE FASTER [facility] ha1 04:17 03:15 Eloped from patient exam room, after seeing physician Time discovered patient vc1 gone: December 31, 2023 at 03:15 vc1 04:18 03:29 Reassessment: ATTEMPTED TO START AN IV. PT'S FATHER REFUSED AND STATED SCREAMING ha1 "YOU GUYS NEED TO MOVE FASTER [facility]." ha1 04:18 04:18 Patient left the ED. vc1 vc1
--- NOTE | 2023-12-31 04:18 | EDPHYS ---
Physician Documentation [facility] Name: Mat Jenkins Age: 38 yrs Sex: Male : 1985 Arrival Date: 12/31/2023 Time: 02:00 Bed 13 Private MD: ED Physician Jose Acosta HPI: 12/30 02:11 This 38 yrs old Male presents to ER via Unassigned with complaints of post sp4 surgery:pain and infected. 04:37 38-year-old male who is a [place] patient presents with acute worsening of abdominal pain. sp4 Patient states he had umbilical hernia repair at the [facility] 2 days prior to arrival here. Patient in the last several hours developed moderate to severe periumbilical abdominal pain. Patient reports also 9 days of constipation. . Historical: - Allergies: 02:26 No Known Allergies; cm10 - PMHx: 02:26 Crohn's; Hernia; PTSD; Tonsillitis; cm10 - PSHx: 02:26 Appendectomy; Tonsillectomy; cm10 - Immunization history:: Adult Immunizations up to date. - Infectious Disease History:: Denies. - Social history:: Smoking status: Patient denies any tobacco usage or history of. - Family history:: not pertinent. ROS: 04:37 Constitutional: Negative for fever, chills, and weight loss, Abdomen/GI: Positive for sp4 abdominal pain and constipation 04:37 All other systems are negative, Exam: 04:37 Constitutional: This is a well developed, well nourished patient who is awake, alert, sp4 and in mild to moderate distress secondary to pain Head/Face: Normocephalic, atraumatic. Eyes: Pupils equal round and reactive to light, extra-ocular motions intact. Lids and lashes normal. Conjunctiva and sclera are not injected. Cornea within normal limits. Periorbital areas with no swelling, redness, or edema. ENT: Nares patent. No nasal discharge, no septal abnormalities noted. Tympanic membranes are normal and external auditory canals are clear. Oropharynx with no redness, swelling, or masses, exudates, or evidence of obstruction, uvula midline. Mucous membranes moist. Neck: Trachea midline, no thyromegaly or masses palpated, and no cervical lymphadenopathy. Supple, full range of motion without nuchal rigidity, or vertebral point tenderness. Chest/axilla: Normal chest wall appearance and motion. Nontender with no deformity. No lesions are appreciated. Cardiovascular: Regular rate and rhythm with a normal S1 and S2. No gallops, murmurs, or rubs. Normal PMI, no JVD. No pulse deficits. Respiratory: Lungs have equal breath sounds bilaterally, clear to auscultation and percussion. No rales, rhonchi or wheezes noted. No increased work of breathing, no retractions or nasal flaring. Abdomen/GI: Soft, with normal bowel sounds. No distension or tympany. No guarding , no tenderness, postoperative incision at umbilicus which is clean dry and intact and covered with Dermabond. Back: No spinal tenderness. No costovertebral tenderness. Skin: Warm, dry with normal turgor. Normal color with no rashes, no lesions, and no evidence of cellulitis. MS/ Extremity: Pulses equal, no cyanosis. Neurovascular intact. Full, normal range of motion. Neuro: Awake and alert, GCS 15, oriented to person, place, time, and situation. Cranial nerves II-XII grossly intact. Motor strength 5/5 in all extremities. Sensory grossly intact. Psych: Awake, alert, with orientation to person, place and time. Behavior, mood, and affect are within normal limits Vital Signs: 02:25 BP 146 / 114; Pulse 100; Resp 18; Temp 97.6(O); Pulse Ox 97% on R/A; Weight 86.18 kg; cm10 Height 5 ft. 7 in. ; Pain 10/10; 02:25 Body Mass Index 29.76 (86.18 kg, 170.18 cm) cm10 02:25 Pain Scale: Adult cm10 MDM: 02:12 Patient medically screened. sp4 04:37 Differential Diagnosis altered mental status, sepsis, flu, Postoperative abdominal sp4 pain. Data reviewed: vital signs, nurses notes. ED course: Patient was ordered full abdominal workup including labs, CT abdomen and pelvis with IV contrast to check for postoperative complications. Patient was also ordered pain medicine including morphine ondansetron haloperidol normal saline and Toradol. Patient then decided to elope prior to completion of his workup and prior to repeat assessment. At this time patient is status elopement. Administered Medications: 04:10 Not Given (Patient Eloped): [id number] mg IVP once; dilute with 10 mL 0.9% NaCl; give vc1 over 2 minutes 04:11 Not Given (Patient Eloped): haloperidol2.5 mg/50 ml 2.5 mg IVP once; Place patient on a vc1 playground monitor 04:11 Not Given (Patient Eloped): ns 0.9% 1000 ml IV at 1 bolus Per protocol; 1000 mL bolus vc1 04:11 Not Given (Patient Eloped): TORadol - [id number] mg IVP once vc1 04:12 Not Given (Patient Eloped): morphineor iv 8 mg IVP once over 4 mins vc1 04:12 Not Given (Patient Eloped): ondansetron 4 mg IVP once; over 2 minutes vc1 Disposition Summary: 12/31/23 04:18 Eloped Notes: Disposition: post triage evaluation and consult vc1 Reason: wait time vc1 Signatures: Dispatcher [employer] EDDaria Sage RN RN vc1 Jose Acosta MD MD sp4 Elizabet Cardenas RN RN cm10 Corrections: (The following items were deleted from the chart) 03:04 03:04 Abdomen Pelvis W Con+CT.RAD.BRZ ordered. EDMS EDMS 04:10 03:04 IV Saline Lock ordered. sp4 vc1 04:10 03:04 Labs collected and sent ordered. sp4 vc1
[2023-12-31 09:41] VITALS: BP 146/114; TEMP 97.6; O2SAT 97
== END 2023-12-31 04:18 | disposition left against medical advice (07) ==
LOC: ER 02:00
DX: G89.18 Other acute postprocedural pain (principal); Z98.890 Other specified postprocedural states
CPT/HCPCS: 99281

== ENCOUNTER 2024-12-05 10:52 | Emergency (ER) | payer OTHER ==
--- OUTSIDE RECORDS SUMMARY | 2024-12-05 10:55 | XMS REPORT | Continuity of Care Document ---
Author Name Unknown Address [address] [facility] [address] [facility] [address] [place] [address] [facility] [place] Address 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 Role Phone CTR, [facility] MED Primary Care Physician U VALENTINE Smith Attending Clinician Unavailab VALENTINE Owens Attending Clinician Unavailab TRISTIN Hill Attending Clinician Unavailable Tristin Hinojosa DO Attending Clinician [phone] CHANDNI TAYLOR Attending Clinician Unavailable Chandni Taylor NP Attending Clinician SUJATA LOUIS Attending Clinician Unavailable EVERETT GAFFNEY Attending Clinician Unavailable VALENTINE HANEY Admitting Clinician Unavailab tawanda Payers Payer Name Policy Type Policy Number Effective Date Expirati on Date Source [facility] [id number] 2008 00:00:00 [facility] CCN [id number] 2008 00:00:00 2023 00:00:00 Allergies, Adverse Reactions, Alerts Allergy Name Allergy Type Status Severity Reaction(s) Onset Date Inactive Date Treating Clinician Comments Source NO KNOWN ALLERGIE S Drug Class Active [facility] Social History Social Habit Start Date Stop Date Quantity Comments Source Sexual [facility] Tobacco use and exposure 2024-03-27 00:00:00 2024-03-27 00:00:00 Smokeless tobacco non-user [facility] Alcoholic beverage intake 2024-03-27 00:00:00 2024-03-27 00:00:00 Ex-drinker (finding) [facility] History of Social function 2024-03-27 00:00:00 2024-03-27 00:00:00 [facility] Exposure to SARS-CoV-2 (event) 2022-08-21 00:00:00 2022-08-31 12:37:00 Not sure [facility] Sex assigned at 1985 00:00:00 1985 00:00:00 [facility] Smoking Status Start Date Stop Date Source Tobacco smoking consumption unknown [facility] Never smoked tobacco [facility] Medications Ordered Medication Name Filled Medication Name Start Date Stop Date Current Medication? Ordering Clinician Indication Dosage Frequency Signature (SIG) Comments Components Source FENTanyl PF (SUBLIMAZE (PF)) injection 50 mcg 03-27 17:30: 00 03-27 16:32 :00 No 50ug 50 mcg, Slow IV Push, ONCE, 1 dose, On Sat03/27/24 at 1230, Routine [facility] FENTanyl PF (SUBLIMAZE (PF)) injection 50 mcg 03-27 14:15: 00 03-27 13:26 :00 No 50ug 50 mcg, Slow IV Push, ONCE, 1 dose, On Sat03/27/24 at 0915, Routine [facility] iopamidol (ISOVUE 370-500 mL) injection 85 mL 03-27 13:00: 00 03-27 13:15 :00 No [id number] 85mL 85 mL, Intravenou s, ONCE, 1 dose, On Sat03/27/24 at 0815, Routine [facility] NaCl 0.9% (NS) bolus infusion 1,000 mL 03-27 13:00: 00 03-27 14:30 :00 No 1000mL at 999 mL/hr, 1,000 mL, IV Infusion, ONCE, 1 dose, On Sat03/27/24 at 0800, CHYNA [facility] ondansetron (ZOFRAN (PF)) injection 4 mg 03-27 12:15: 00 03-27 12:11 :00 No 4mg 4 mg, Slow IV Push, ONCE, 1 dose, On Sat03/27/24 at 0715, [facility] morpHINE (4 mg/mL) injection 4 mg 03-27 12:15: 00 03-27 12:12 :00 No 4mg 4 mg, Slow IV Push, ONCE, 1 dose, On Sat03/27/24 at 0715, STAT [facility] HYDROcodone -acetaminop hen 5-325 mg tablet 03-27 00:00: 00 03-27 00:00 :00 No [id number] 1{tbl} Take 1 tablet by mouth every 6 (six) hours as needed for Pain (scale 7-10). Indication s: acute pain [facility] ketorolac 10 mg tablet 03-27 00:00: 00 03-27 00:00 :00 No [id number] 10mg Take 1 tablet by mouth every 6 (six) hours as needed for Alternate with Sheldon for pain scale 1-3. [facility] acetaminoph en (TYLENOL) 325 mg Cap 03-27 00:00: 00 03-27 00:00 :00 No [id number] 650mg Take 650 mg by mouth in the morning and 650 mg at noon and 650 mg in the evening. [facility] NaCl 0.9% (NS) bolus infusion 1,000 mL 03-07 17:00: 00 03-07 18:52 :00 No 1000mL at 999 mL/hr, 1,000 mL, IV Infusion, ONCE, 1 dose, On Linette 03/07/23 at 1200, [facility] ondansetron (ZOFRAN (PF)) injection 4 mg 03-07 16:15: 00 03-07 16:39 :00 No 4mg 4 mg, Slow IV Push, ONCE, 1 dose, On Linette 03/07/23 at 1115, CHYNA [facility] benzonatate 100 mg capsule 2021-09 00:00: 00 Yes [id number] 200mg Take 2 capsules by mouth 3 (three) times daily as needed for Cough. [facility] Vital Signs Vital Name Observation Time Observation Value Comments S ource Systolic blood pressure 2024-03-27 18:21:00 138 mm[Hg] [facility] Diastolic blood pressure 2024-03-27 18:21:00 96 mm[Hg] [facility] Heart rate 2024-03-27 18:21:00 81 /min Unive [facility] Body temperature 2024-03-27 18:21:00 36.72 Abby [facility] Respiratory rate 2024-03-27 18:21:00 16 /min [facility] Oxygen saturation in Arterial blood by Pulse oximetry 2024-03-27 18:21:00 98 /min [facility] Body height 2024-03-27 11:38:00 170.2 cm [facility] Body weight 2024-03-27 11:38:00 89.721 kg [facility] BMI 2024-03-27 11:38:00 30.98 kg/m2 [facility] Systolic blood pressure 2023-08-26 16:11:00 149 mm[Hg] [facility] Diastolic blood pressure 2023-08-26 16:11:00 91 mm[Hg] [facility] Heart rate 2023-08-26 16:11:00 79 /min Un[facility] Body temperature 2023-08-26 16:11:00 37.39 Abby [facility] Respiratory rate 2023-08-26 16:11:00 14 /min [facility] Body height 2023-08-26 16:11:00 170.2 cm [facility] Body weight 2023-08-26 16:11:00 88.451 kg [facility] BMI 2023-08-26 16:11:00 30.54 kg/m2 [facility] Oxygen saturation in Arterial blood by Pulse oximetry 2023-08-26 16:11:00 100 /min [facility] Systolic blood pressure 2023-03-07 18:53:00 129 mm[Hg] [facility] Diastolic blood pressure 2023-03-07 18:53:00 72 mm[Hg] [facility] Heart rate 2023-03-07 18:53:00 73 /min Un[facility] Respiratory rate 2023-03-07 18:53:00 16 /min [facility] Oxygen saturation in Arterial blood by Pulse oximetry 2023-03-07 18:53:00 96 /min [facility] Body temperature 2023-03-07 16:00:00 37.39 Abby [facility] Body height 2023-03-07 16:00:00 170.2 cm [facility] Body weight 2023-03-07 16:00:00 86.183 kg [facility] BMI 2023-03-07 16:00:00 29.76 kg/m2 [facility] Respiratory rate 2022-08-31 18:38:00 16 /min [facility] Body height 2022-08-31 18:38:00 170.2 cm [facility] Body weight 2022-08-31 18:38:00 83.915 kg [facility] BMI 2022-08-31 18:38:00 28.98 kg/m2 [facility] Oxygen saturation in Arterial blood by Pulse oximetry 2022-08-31 18:38:00 100 /min [facility] Systolic blood pressure 2022-08-31 18:38:00 141 mm[Hg] [facility] Diastolic blood pressure 2022-08-31 18:38:00 89 mm[Hg] [facility] Heart rate 2022-08-31 18:38:00 86 /min Unive [facility] Body temperature 2022-08-31 18:38:00 37.39 Abby [facility] Procedures Procedure Date / Time Performed Performing Clinicia n Source CT ABDOMEN PELVIS W CONTRAST 2024-03-27 13:09:38 Valentine Haney [facility] LIPASE 2024-03-27 12:11:00 [facility] 2024-03-27 12:11:00 [facility] COMP. METABOLIC PANEL ([id number]) 2024-03-27 12:11:00 Valentine Haney [facility] CBC WITH DIFF 2024-03-27 12:11:00 [facility]REFUSAL FOR DIAGNOSIS AND TREATMENT 2023-08-26 15:44:22 Doctor Unassigned, [place] [facility] EKG-12 LEAD 2023-03-07 18:45:52 [facility] 2023-03-07 16:26:00 Valentine Haney [facility] TROPONIN I 2023-03-07 16:26:00 Valentine Haney [facility] COMP. METABOLIC PANEL (60040) 2023-03-07 16:26:00 Valentine Haney [facility] CBC WITH DIFF 2023-03-07 16:26:00 Valentine Haney U [facility] CONSENT/REFUSAL FOR DIAGNOSIS AND TREATMENT 2023-03-07 15:59:48 Doctor Unassigned, [place] [facility] NOTICE OF PRIVACY PRACTICES 2022-08-31 18:36:45 Doctor Unassigned, [place] [facility] CONSENT/REFUSAL FOR DIAGNOSIS AND TREATMENT 2022-08-31 18:34:37 Doctor Unassigned, [place] [facility] Encounters Start Date/Time End Date/Time Encounter Type Admission Type Attending [facility] Care Facility Care Department Encounter ID Source 2024-03-27 06:42:00 2024-03-27 13:32:00 Emergency X VALENTINE HANEY SANDRA [facility] ERT [id number] [facility] 2024-03-27 06:42:00 2024-03-27 13:32:00 Emergency Valentine Haney [facility] [id number] [facility] 2023-08-26 10:12:00 2023-08-26 11:32:00 Emergency X TRISTIN HINOJOSA [facility] ERT [id number] [facility] 2023-08-26 10:12:00 2023-08-26 11:32:00 Emergency Tristin Hinojosa [facility] [id number] [id number] [id number] [facility] 2023-03-07 11:15:00 2023-03-07 13:57:00 Emergency VALENTINE CA [facility] ERT [id number] [facility] 2023-03-07 11:15:00 2023-03-07 13:57:00 Emergency Valentine Haney [facility] [id number] [id number] [facility] 2022-08-31 12:40:00 2022-08-31 13:39:00 Emergency X CHANDNI TAYLOR [facility] ERT [id number] [facility] 2022-08-31 12:40:00 2022-08-31 13:39:00 Emergency Chandni Taylor [facility] [id number] [id number] [id number] [facility] 2021-08-06 19:02:00 2021-08-06 23:01:00 [id number] 2021-05-30 09:54:00 2021-05-30 14:25:00 Emergency EVERETT [facility] [id number] [facility] Results Test Description Test Time Test Comments Results Result Comments Source CT ABDOMEN PELVIS W CONTRAST 2024-03 13:22:[address] Abdomen and Pelvis with intravenous contrast. CLINICAL HISTORY: Abdominal pain, acute, nonlocalized. DOSE: Up-to-date CT equipment and radiation dose reduction techniques wereemployed. CTDIvol: ? 9.19 mGy. DLP: 473.52 mGy-cm. TECHNIQUE : Contiguous axial imaging from the level of the lung basesthrough the pubic symphysis were performed after the uncomplicatedadministration of nonionic contrast material. ?Coronal and sagittalreconstructions were obtained. Auto mA and/or iterative reconstruction wereused to reduce radiation dose. FINDINGS: ? Lower lungs: Minimal dependent lung congestion. No focal consolidation. Nopleural effusion or pericardial effusion. Small hiatal hernia suspected. Liver, Gallbladder and Spleen: Liver is 17 cm in length and spleen measuresapproximately 10.5 x 4.2 cm in size. Mild fatty infiltration of the liverparenchyma suspected. No enhancing liver lesions visualized. Gallbladder is moderately distended, consistent with hydrops with diffusemild thickening of the gallbladder wall is noted. No gallstones visualized.Biliary ducts and the pancreatic duct appear of normal size. Peritoneum: ?No free air or free fluid. No lymphadenopathy. Pancreas and Adrenals: ?Unremarkable pancreas and adrenal glands. Kidneys and Ureters: ?No visible calculi in the renal collecting systems. No hydroureter or hydronephrosis. Mild fullness noted in both ureterswithout any obstructing stone. The urinary bladder is moderately distended. Vessels: Minimal calcification seen in the posterior wall of the lowerabdominal aorta, otherwise normal. Retroperitoneum: No abnormal fluid or lymphadenopathy. Bowel: ?Prior appendectomy suspected. Constipation noted with retainedmoderate amount of fecal material throughout. Some of the proximal jejunalloops are slightly dilated with minimal mucosal thickening and enhancementnoted. Bladder and Reproductive Organs: Moderately distended urinary bladder. Bones: No acute findings. Bone island noted in the neck of the right andleft femur. Mild degenerative changes are seen in both hip joints. Soft tissues: Small, fat-containing indirect type left inguinal hernia.Scar tissue seen in the abdominal wall at and slightly above the level ofthe umbilicus with localized fluid collection of 8 x 5 x 1.5 cm sizeunderneath the abdominal wall in the midline and slightly to the left ofthe midline which could be postoperative hematoma/seroma. CONCLUSION: 1. Hydropic gallbladder noted without any visible gallstones. If thepatient is experiencing clinical symptoms suggestive of gallbladderdisease, ultrasound study may BE helpful.2. Moderately distended stomach with food could be due to recent meal.Small hiatal hernia.3. Slightly dilated proximal jejunal loops with mild diffuse mucosalenhancement, borderline finding of gastroenteritis. Please correlate withhistory and clinical evaluation.4. S/P appendectomy. Anterior abdominal wall scar tissue noted at and abovethe level of the umbilicus and underneath the abdominal wall, an 8 x 5 x1.5 cm loculated fluid collection is seen which could be post surgicalhematoma/seroma. [facility][id number][facility]2024-03-27 12:45:37* Test Item Value Reference Range Interpretation Comme nts NA (test code = 4511014392) 138 mmol/L 135-145 K (test code = 3804327190) 3.8 mmol/L 3.5-5.0 CL (test code = 4303565919) 100 mmol/L 98-108 CO2 TOTAL (test code = 9322840977) 30 mmol/L 23-31 AGAP (test code = 1626643971) 8 2-16 BUN (test code = 4503896588) 8 mg/dL 7-23 GLUCOSE (test code = 2349705918) 109 mg/dL 70-110 CREATININE (test code = 2160-0) 0.98 mg/dL 0.60-1.25 TOTAL BILI (test code = 3853871097) 0.5 mg/dL 0.1-1.1 CALCIUM (test code = 9719175600) 9.5 mg/dL 8.6-10.6 T PROTEIN (test code = 3444919665) 7.9 g/dL 6.3-8.2 ALBUMIN (test code = 6285121916) 4.7 g/dL 3.5-5.0 ALK PHOS (test code = 8715987290) 61 U/L 34-122 ALTv (test code = 1742-6) 50 U/L 5-50 AST(SGOT) (test code = 1679127042) 55 U/L 13-40 H eGFR (test code = 88093-5) 100.0 mL/min/1.73m2 CKD-EPI eGFR (2020). Assuming creatinine has been stable day-to-day for at least three months, the eGFR indicates Category G1 (>= 90 mL/min/1.73 m2) Lab Interpretation (test code = 28270-1) [facility]17* Test Item Value Reference Range Interpretation Comme nts LIPASE (test code = 7259866680) 141 U/L 0-220 Lab Interpretation (test cod e = 78436-1) [facility] [id number] 12:30:41* Test Item Value Reference Range Interpretation Comme nts WBC (test code = 6690-2) 11.09 4.20-10.70 H RBC (test code = 789-8) 4.77 4.26-5.52 HGB (test code = 718-7) 14.9 g/dL 12.2-16.4 HCT (test code = 4544-3) 43.6 % 38.4-49.3 MCV (test code = 787-2) 91.4 fL 81.7-95.6 MCH (test code = 785-6) 31.2 pg 26.1-32.7 MCHC (test code = 786-4) 34.2 g/dL 31.2-35.0 RDW-SD (test code = 82805-1) 43.5 fL 38.5-51.6 RDW-CV (test code = 788-0) 12.8 % 12.1-15.4 PLT (test code = 777-3) 304 150-328 MPV (test code = 64543-2) 8.7 fL 9.8-13.0 L NRBC/100 WBC (test code = 1168990728) 0.0 0.0-10.0 NRBC x10^3 (test code = 5726418512) See_Comment [Automated messa ge] The system which generated this result transmitted reference range: 10*3/?L. The reference range was not used to interpret this result as normal/abnormal. GRAN MAT (NEUT) % (test code = 770-8) 65.2 % IMM GRAN % (test code = 2803763413) 0.50 % LYMPH % (test code = 736-9) 22.3 % MONO % (test code = 5905-5) 7.7 % EOS % (test code = 713-8) 3.8 % BASO % (test code = 706-2) 0.5 % GRAN MAT x10^3(ANC) (test code = 2588252472) 7.24 10*3/uL 1.99-6.95 H IMM GRAN x10^3 (test code = 9817023708) 0.06 10*3/uL 0.00-0.06 LYMPH x10^3 (test code = 731-0) 2.47 10*3/uL 1.09-3.23 MONO x10^3 (test code = 742-7) 0.85 10*3/uL 0.36-1.02 EOS x10^3 (test code = 711-2) 0.42 10*3/uL 0.06-0.53 BASO x10^3 (test code = 704-7) 0.05 10*3/uL 0.01-0.09 Lab Interpretation (test code = 21281-9) Abnormal [facility] Notes Date/Time Note Provider Source 2024-03-27 13:25:11 Pt given printed and verbal discharge instructions regarding seroma, encouraged hydration. 3 Prescriptions sent to pharmacy. Discussed Toradol and to take with food to avoid GI distress. Discussed hydrocodone side affects and to avoid driving/operating machinery/or engaging in activities requiring alertness while taking. Pt verbalized understanding of instructions, pt awake alert oriented, resp reg unlabored, skin w/d, color appropriate for race, moves all ext well,pt encouraged to follow up with pcp, and surgery. Advised to seek medical attention for new/prolonged/worsening of symptoms, Symptoms improved. No adverse reaction to meds given in ER noted upon discharge. PIV d'cd, dressing to site, catheter in tact. Awake, alert oriented, resp reg unlabored, skin w/d, pt leaving amb with steady gait, in no apparent distress. Tuyet Juarez RN [facility] 2024-03-27 13:23:11 Provider deems patient safe to drive home. Patient A&Ox4. T [facility] 2024-03-27 11:08:36 Report received from SHARA Ratliff T [facility] 2024-03-27 09:50:00 Discussed plan of care with patient and pending transfer. Jose Roberto Ratliff RN [facility] 2024-03-27 06:48:22 Report given to SHARA Ratliff. T [facility] 2024-03-27 06:36:01 Patient arrived ambulatory to ED c/o abdominal pain. Patient was discharged from [place] yesterday where they drained fluid off of abdomen. Patient states abdomen is rock hard and hurting. YT Almaz Rodriguez RN [facility] 2024-03-27 06:31:00 [facility] Emergency Department Note Patient Name: Liyah Jenkins Date of : 1985 38 year old male Treatment Room: TX2/TX2 Primary Care Physician: RAVINDER [facility] Patient Escorted by: Self [9] Mode of Arrival: Personal means [1] EMS Treatment Prior to ED Arrival: [employer] treatment: None Travel and Exposure Screening: Symptoms Does patient have any of these symptoms?: (not recorded) Exposure Screening Has patient had contact with someone with a communicable disease in the last month?: (not recorded) Diseases exposed to:: (not recorded) Is Patient ?: (not recorded) Exposure Date: (not recorded) Chief Complaint: Chief Complaint Patient presents with Abdominal Pain History of Present Illness: The patient presents from home for evaluation for abdominal discomfort and pressure that started this morning. He was recently admitted to the [facility] March 23 until yesterday March for. During that visit he had drainage of a suspected seroma around a recent repaired umbilical hernia site on March 25. He reports he was doing fine yesterday however when he woke up this morning he had pain and discomfort. No fevers. Some nausea but no vomiting. No dysuria hematuria. No medication taken for symptoms. No history diabetes or high blood pressure. Here for evaluation. Past Medical History/Immunizations: Past Medical History: Diagnosis Date Appendicitis Crohn disease Trauma Ventral hernia Tetanus received in last 5 years: Unknown Allergies: No Known Allergies Past Social History: Tobacco Use Never smoked or used smokeless tobacco. Alcohol Use Not Currently. Past Surgical History: Past Surgical History: Procedure Laterality Date COLECTOMY VENTRAL HERNIORRHAPHY Review of Systems: Review of Systems Constitutional: Negative for chills and fever. Respiratory: Negative for cough and shortness of breath. Cardiovascular: Negative for chest pain. Gastrointestinal: Positive for abdominal pain and nausea. Negative for vomiting. Genitourinary: Negative for dysuria. Musculoskeletal: Negative for arthralgias, neck pain and neck stiffness. Skin: Negative for wound. Neurological: Negative for dizziness. Psychiatric/Behavioral: Negative for agitation. Endocrine: Negative for goiter. Physical Exam: ED Triage Vitals Weight 03/27/24 0638 89.7 kg (197 lb 12.8 oz) Actual or estimated 03/27/24 0638 Actual Height 03/27/24 0638 1.702 m (5' 7") BP 03/27/24 0638 (!) 162/108 Pulse 03/27/24 0638 76 Resp 03/27/24 0638 16 Temp 03/27/24 0638 36.8 ?C (98.2 ?F) Temp source 03/27/24 0638 Oral SpO2 03/27/24 0730 96 % Measured on 03/27/24 0638 Room air Physical Exam Vitals and nursing note reviewed. Constitutional: Appearance: Normal appearance. He is normal weight. HENT: Head: Normocephalic and atraumatic. Cardiovascular: Rate and Rhythm: Normal rate and regular rhythm. Pulses: Normal pulses. Pulmonary: Effort: Pulmonary effort is normal. Abdominal: General: Bowel sounds are normal. There is no distension. Tenderness: There is no abdominal tenderness. Comments: There is tenderness around the umbilicus but no erythema, warmth or fluctuance. Musculoskeletal: General: Normal range of motion. Cervical back: Normal range of motion and neck supple. Skin: General: Skin is warm and dry. Neurological: General: No focal deficit present. Mental Status: He is alert and oriented to person, place, and time. Radiology: CT ABDOMEN PELVIS W CONTRAST Final Result CT Abdomen and Pelvis with intravenous contrast. CLINICAL HISTORY: Abdominal pain, acute, nonlocalized. DOSE: Up-to-date CT equipment and radiation dose reduction techniques were employed. CTDIvol: 9.19 mGy. DLP: 473.52 mGy-cm. TECHNIQUE : Contiguous axial imaging from the level of the lung bases through the pubic symphysis were performed after the uncomplicated administration of nonionic contrast material. Coronal and sagittal reconstructions were obtained. Auto mA and/or iterative reconstruction were used to reduce radiation dose. FINDINGS: Lower lungs: Minimal dependent lung congestion. No focal consolidation. No pleural effusion or pericardial effusion. Small hiatal hernia suspected. Liver, Gallbladder and Spleen: Liver is 17 cm in length and spleen measures approximately 10.5 x 4.2 cm in size. Mild fatty infiltration of the liver parenchyma suspected. No enhancing liver lesions visualized. Gallbladder is moderately distended, consistent with hydrops with diffuse mild thickening of the gallbladder wall is noted. No gallstones visualized. Biliary ducts and the pancreatic duct appear of normal size. Peritoneum: No free air or free fluid. No lymphadenopathy. Pancreas and Adrenals: Unremarkable pancreas and adrenal glands. Kidneys and Ureters: No visible calculi in the renal collecting systems. No hydroureter or hydronephrosis. Mild fullness noted in both ureters without any obstructing stone. The urinary bladder is moderately distended. Vessels: Minimal calcification seen in the posterior wall of the lower abdominal aorta, otherwise normal. Retroperitoneum: No abnormal fluid or lymphadenopathy. Bowel: Prior appendectomy suspected. Constipation noted with retained moderate amount of fecal material throughout. Some of the proximal jejunal loops are slightly dilated with minimal mucosal thickening and enhancement noted. Bladder and Reproductive Organs: Moderately distended urinary bladder. Bones: No acute findings. Bone island noted in the neck of the right and left femur. Mild degenerative changes are seen in both hip joints. Soft tissues: Small, fat-containing indirect type left inguinal hernia. Scar tissue seen in the abdominal wall at and slightly above the level of the umbilicus with localized fluid collection of 8 x 5 x 1.5 cm size underneath the abdominal wall in the midline and slightly to the left of the midline which could be postoperative hematoma/seroma. CONCLUSION: 1. Hydropic gallbladder noted without any visible gallstones. If the patient is experiencing clinical symptoms suggestive of gallbladder disease, ultrasound study may BE helpful. 2. Moderately distended stomach with food could be due to recent meal. Small hiatal hernia. 3. Slightly dilated proximal jejunal loops with mild diffuse mucosal enhancement, borderline finding of gastroenteritis. Please correlate with history and clinical evaluation. 4. S/P appendectomy. Anterior abdominal wall scar tissue noted at and above the level of the umbilicus and underneath the abdominal wall, an 8 x 5 x 1.5 cm loculated fluid collection is seen which could be post surgical hematoma/seroma. Lab Results: Lab Results CBC WITH DIFF - Abnormal Result Value Ref Range WBC 11.09 (*) 4.20 - 10.70 10*3/?L RBC 4.77 4.26 - 5.52 10*6/?L HGB 14.9 12.2 - 16.4 g/dL HCT 43.6 38.4 - 49.3 % MCV 91.4 81.7 - 95.6 fL MCH 31.2 26.1 - 32.7 pg MCHC 34.2 31.2 - 35.0 g/dL RDW-SD 43.5 38.5 - 51.6 fL RDW-CV 12.8 12.1 - 15.4 % PLT 304 150 - 328 10*3/?L MPV 8.7 (*) 9.8 - 13.0 fL NRBC/100 WBC 0.0 0.0 - 10.0 /100 WBCs NRBC x10 3 <0.01 10*3/?L GRAN MAT (NEUT) % 65.2 % IMM GRAN % 0.50 % LYMPH % 22.3 % MONO % 7.7 % EOS % 3.8 % BASO % 0.5 % GRAN MAT x10 3 (ANC) 7.24 (*) 1.99 - 6.95 10*3/uL IMM GRAN x10 3 0.06 0.00 - 0.06 10*3/uL LYMPH x10 3 2.47 1.09 - 3.23 10*3/uL MONO x10 3 0.85 0.36 - 1.02 10*3/uL EOS x10 3 0.42 0.06 - 0.53 10*3/uL BASO x10 3 0.05 0.01 - 0.09 10*3/uL COMP. METABOLIC PANEL (93926) - Abnormal NA 138 135 - 145 mmol/L K 3.8 3.5 - 5.0 mmol/L CL 100 98 - 108 mmol/L CO2 TOTAL 30 23 - 31 mmol/L AGAP 8 2 - 16 BUN 8 7 - 23 mg/dL GLUCOSE 109 70 - 110 mg/dL CREATININE 0.98 0.60 - 1.25 mg/dL TOTAL BILI 0.5 0.1 - 1.1 mg/dL CALCIUM 9.5 8.6 - 10.6 mg/dL T PROTEIN 7.9 6.3 - 8.2 g/dL ALBUMIN 4.7 3.5 - 5.0 g/dL ALK PHOS 61 34 - 122 U/L ALTv 50 5 - 50 U/L AST(SGOT) 55 (*) 13 - 40 U/L eGFR 100.0 mL/min/1.73m2 LIPASE - Normal LIPASE 141 0 - 220 U/L MAGNESIUM - Normal MAGNESIUM 2.0 1.7 - 2.4 mg/dL EKG: If EKG completed, see Procedure Note. Orders and Treatments: Orders Placed This Encounter Procedures CT ABDOMEN PELVIS W CONTRAST CBC WITH DIFF COMP. METABOLIC PANEL (09175) LIPASE Magnesium Consult General Surgery Orders Placed This Encounter Medications NaCl 0.9% (NS) bolus infusion 1,000 mL morpHINE (4 mg/mL) injection 4 mg ondansetron (ZOFRAN (PF)) injection 4 mg iopamidol (ISOVUE 370-500 mL) injection 85 mL FENTanyl PF (SUBLIMAZE (PF)) injection 50 mcg FENTanyl PF (SUBLIMAZE (PF)) injection 50 mcg DISCONTD: HYDROcodone-acetaminophen 5-325 mg tablet DISCONTD: ketorolac 10 mg tablet DISCONTD: acetaminophen (TYLENOL) 325 mg Cap acetaminophen (TYLENOL) 325 mg Cap ketorolac 10 mg tablet HYDROcodone-acetaminophen 5-325 mg tablet First Provider Eval: ED Events Date/Time Event User Comments 03/27/24 0655 Medical Screening Begins VALENTINE HANEY DO -- 03/27/24 0655 First Provider Evaluation VALENTINE HANEY DO -- ED COURSE Diagnosis/Impression as of 03/27/24 1310 Generalized abdominal pain Abdominal wall fluid collections Procedures: Procedures MDM: Medical Decision Making The patient presents from home for evaluation for abdominal discomfort and pressure that started this morning. He was recent admitted to the [facility] March 23 through yesterday which was March 26. He had drainage of his suspected seroma recently repaired in bronchorrhea on March 25. He is still pending the results of the fluid studies. Some nausea but no vomiting. No fevers or chills. No medications taken for symptoms. No history of diabetes. He had a previous colon resection as well as an appendectomy and the hernia repair. Vital signs are stable in the ER. His abdomen is soft but with tenderness around the umbilicus. There is no erythema, warmth or fluctuance. Positive bowel sounds x 4. Differential diagnosis includes bleeding, abscess, recurrence of the fluid collection. Will check laboratory studies and obtain a CT of his abdomen and pelvis. Will also give the patient pain medication here in the ER. Final disposition pending. 0900 -the patient is doing well here in the ER. His laboratory studies are unremarkable. The CT of his abdomen pelvis shows a suspected seroma/hematoma to the abdominal wall that is approximately 8 x 5 x 1.5 cm in dimension. As he recently had this drained on March 25 at the [facility] will attempt to send him back to the [facility] for continued management. 1215 -the patient was accepted by the [facility] for evaluation however he does not desire to go back there as he does not trust them since he just had this fluid collection drained and it is back already. He will likely benefit from IR drainage is not available here at [facility]. Will attempt to transfer the patient to the [facility]. 1310 -the patient was seen at bedside with Dr. Borrego who recommends outpatient follow-up as well as pain medication. No indication for admission or transfer at present time. Remained stable here in the ER and is okay for discharge home with PCP follow-up. Problems Addressed: Abdominal wall fluid collections: acute illness or injury Generalized abdominal pain: acute illness or injury Amount and/or Complexity of Data Reviewed Labs: ordered. Decision-making details documented in ED Course. Radiology: ordered and independent interpretation performed. Decision-making details documented in ED Course. Risk Prescription drug management. Parenteral controlled substances. Decision regarding hospitalization. Flowsheet Documentation: Scoring Tools: No data recorded Disposition/Condition: ED Disposition ED Disposition Disch - Home Condition Stable Comment -- Discharge Medications: Current Discharge Medication List START taking these medications Details acetaminophen (TYLENOL) 325 mg Cap Take 650 mg by mouth in the morning and 650 mg at noon and 650 mg in the evening. Qty: 84 capsule, Refills: 0 Associated Diagnoses: Generalized abdominal pain HYDROcodone-acetaminophen 5-325 mg tablet Take 1 tablet by mouth every 6 (six) hours as needed for Pain (scale 7-10). Indications: acute pain Qty: 28 tablet, Refills: 0 Associated Diagnoses: Generalized abdominal pain ketorolac 10 mg tablet Take 1 tablet by mouth every 6 (six) hours as needed for Alternate with Sheldon for pain scale 1-3. Qty: 28 tablet, Refills: 0 Associated Diagnoses: Generalized abdominal pain CONTINUE these medications which have NOT CHANGED Details benzonatate 100 mg capsule Take 2 capsules by mouth 3 (three) times daily as needed for Cough. Qty: 24 capsule, Refills: 0 Associated Diagnoses: History of COVID-19 Follow-up: Electronically signed by: Valentine Haney DO 03/27/24 1310 [facility]
[2024-12-05] MEDS ORDERED: ASPIRIN 81 MG CHEWABLE TABLET ONE (11:09)
[2024-12-05 11:18] LABS: Absolute Basophils 0.1 K/uL (0-0.5); Absolute Eosinophils 0.2 K/uL (0-0.5); Absolute Lymphocytes (CBC) 4.3 K/uL (0.7-4.9); Absolute Monocytes 1.1 K/uL (0.1-1.3); Absolute Neutrophil 7.6 K/uL (1.8-8.0); Basophils % 0.4 % (0-1.3); Eosinophils % 1.3 % (0-4.4); Hematocrit 45.5 % (39.6-49.0); Hemoglobin 15.9 g/dL (13.6-17.9); Lymphocytes % 32.3 % (15.3-44.8); MCH 31.1 pg (27.0-35.0); MCHC 34.8 g/dL (32.0-36.0); MCV 89.3 fL (80-100); MPV 7.1 fL (7.6-11.3); Monocytes % 8.6 % (3.3-12.3); Neutrophils % 57.4 % (41.7-73.7); Platelets 319 thou/uL (152-406); Red Cell Distribution Width 13.2 % (12.1-15.2)
[2024-12-05 11:27] LABS: D-Dimer 0.25 FEUug/mL (0-0.500); PT Prothrombin Time 12.5 SECONDS (10-13.0); Protime INR 1.1
[2024-12-05 11:40] LABS: ALT/SGPT 30 U/L (16-61); AST/SGOT 16 U/L (15-37); Albumin 4.3 g/dL (3.4-5.0); Albumin/Globulin Ratio 1.1 (1.1-1.8); Alkaline Phosphatase 53 U/L (45-117); Anion Gap 13.7 mEq/L (5.0-15.0); BUN Blood Urea Nitrogen 7 mg/dL (7-18); Bicarbonate 22 mEq/L (21-32); Bilirubin Total 0.4 mg/dL (0.2-1.0); Globulin 3.9 g/dL (2.3-3.5); Glomerular Filtration Rate 111 ml/min (=/>90); Glucose Level 88 mg/dL (74-106); Magnesium 2.4 mg/dL (1.6-2.4); NT PRO-BNP 20 pg/mL (<125); Potassium 3.7 mEq/L (3.5-5.1); Protein, Total 8.2 g/dL (6.4-8.2); Sodium Level 137 mEq/L (136-145); Troponin High Sensitivity 5.3 pg/mL (<58.9)
--- NOTE | 2024-12-05 11:51 | RAD REPORT ---
EXAMINATION: ONE VIEW CHEST XR CLINICAL INDICATION: CHEST PAIN TECHNIQUE: Frontal chest projection is submitted. Examination is limited by patient positioning and t echnique. COMPARISON: 11/16/2020 FINDINGS: The lungs are well inflated and clear. The heart is normal in size. No displaced fractures identified . IMPRESSION: No acute intrathoracic abnormalities.
[2024-12-05 11:53] LABS: Bilirubin Direct < 0.2 mg/dL (0-0.2); Bilirubin Indirect, Calculated 0.2 mg/dL (0.2-0.8)
[2024-12-05] MEDS ORDERED: MORPHINE 4 MG/ML SYR ONE (12:50)
[2024-12-05] MEDS ORDERED: ONDANSETRON 4 MG/2 ML VIAL ONE (12:50)
--- NOTE | 2024-12-05 14:07 | EDPHYS ---
Physician Documentation [facility] Name: Mat Jenkins Age: 39 yrs Sex: Male : 1985 Arrival Date: 12/05/2024 Time: 10:52 Bed 8 Private MD: ED Physician Santi Hargrove HPI: 12/05 11:44 This 39 yrs old Male presents to ER via Ambulatory with complaints of Chest Pain, kb Shortness Of Breath. 11:44 Pt is a 39 year old male who presents for left sided chest pain that started at 0830 kb this morning. States it has been constant. Reports shortness of breath and shaking all over. . Historical: - Allergies: 11:18 No Known Allergies; le1 - PMHx: 11:18 Crohn's; Hernia; PTSD; Tonsillitis; le1 - PSHx: 11:18 Appendectomy; Tonsillectomy; le1 - Immunization history:: Adult Immunizations up to date. - Infectious Disease History:: Denies. - Social history:: Smoking status: Patient reports the use of cigarette tobacco products, cigars, Patient uses alcohol, occasionally. ROS: 11:13 Constitutional: As per HPI kb Exam: 11:12 Constitutional: This is a well developed, well nourished patient who is awake, alert, kb and in no acute distress. Head/Face: Normocephalic, atraumatic. ENT: Moist Mucous membranes Cardiovascular: Regular rate Respiratory: Respirations even and unlabored. No increased work of breathing. Talking in full sentences Abdomen/GI: Soft, non-tender. No distention Skin: Warm, dry with normal turgor. Normal color. MS/ Extremity: Pulses equal, no cyanosis. Neurovascular intact. Full, normal range of motion. Neuro: Awake and alert, GCS 15, oriented to person, place, time, and situation. 11:12 ECG was reviewed by the Attending Physician. Vital Signs: 11:14 BP 141 / 98; Pulse 91; Resp 17; Temp 98.5(O); Pulse Ox 98% on R/A; Pain 6/10; le1 12:27 BP 134 / 90; Pulse 85; Resp 10; Pulse Ox 98% on R/A; Pain 2/10; le1 12:55 Pain 7/10; le1 13:29 BP 138 / 91; Pulse 82; Resp 16; Pulse Ox 98% on R/A; le1 14:03 BP 136 / 88; Pulse 84; Resp 14; Pulse Ox 97% on R/A; Pain 6/10; le1 14:21 Temp 98.8(O); le1 11:14 Pain Scale: Adult le1 12:27 Pain Scale: Adult le1 12:55 Pain Scale: Adult le1 14:03 Pain Scale: Adult le1 MDM: 10:56 Medical Screening Exam initiated kb 11:13 Data reviewed: vital signs, nurses notes. kb 14:04 Differential diagnosis: arrhythmia, acute mi, pe, chest wall pain. Test considered but kb Not performed: CT: ct chest considered but d-dimer negative. Scoring Tools HEART Score: Total Score = 0. Scoring Tools PERC Rule for PE Age >/= 50 No HR >/= 100 No O2 Sat Room Air < 95% No Unilateral leg swelling No Hemoptysis No Recent surgery or trauma </= 4 wks ago requiring treatment with general anesthesia No (0 pt) Prior PE or DVT No Hormone use (Oral contraceptives, hormone replacement or estrogenic hormones use in males or female patients No. Counseling: I had a detailed discussion with the patient and/or guardian regarding the historical points, exam findings, and any diagnostic results supporting the discharge/admit diagnosis, lab results, radiology results, the need for outpatient follow up, a family practitioner, to return to the emergency department if symptoms worsen or persist or if there are any questions or concerns that arise at home. 12/05 10:59 Order name: Basic Metabolic Panel; Complete Time: 11:55 kb 12/05 10:59 Order name: CBC with Diff; Complete Time: 11:19 kb 12/05 10:59 Order name: D-Dimer; Complete Time: 11:42 kb 12/05 10:59 Order name: LFT's; Complete Time: 11:55 kb 12/05 10:59 Order name: Magnesium; Complete Time: 11:55 kb 12/05 10:59 Order name: NT PRO-BNP; Complete Time: 11:55 kb 12/05 10:59 Order name: PT-INR; Complete Time: 11:42 kb 12/05 10:59 Order name: Troponin HS; Complete Time: 11:55 kb 12/05 13:20 Order name: Troponin HS; Complete Time: 13:50 le1 12/05 10:59 Order name: XRAY Chest (1 view); Complete Time: 11:55 kb 12/05 10:59 Order name: EKG; Complete Time: 11:00 kb 12/05 10:59 Order name: Cardiac monitoring; Complete Time: 11:04 kb 12/05 10:59 Order name: EKG - Nurse/Tech; Complete Time: 11: kb 12/05 10:59 Order name: IV Saline Lock; Complete Time: 11: kb 12/05 10:59 Order name: Labs collected and sent; Complete Time: 11: kb 12/05 10:59 Order name: O2 Per Protocol; Complete Time: 11: kb 12/05 10:59 Order name: O2 Sat Monitoring; Complete Time: 11:04 kb EC:12 Rate is 95 beats/min. Rhythm is regular. QRS Seibert is Normal. AL interval is normal at kb 122 msec. QRS interval is normal at 84 msec. QT interval is normal at 437 msec. Administered Medications: 11:13 Drug: Aspirin PO Chewable Tablet 324 mg PO once; 81 mg tablets x 4 Route: PO; le1 11:24 Follow up: Response: No adverse reaction; Pain is decreased le1 12:51 Drug: morphine IVP or IV 4 mg IVP once over 4 mins Route: IVP; Infused Over: 4 mins; le1 Site: right antecubital; 13:23 Follow up: Response: No adverse reaction; Pain is unchanged, physician notified le1 12:51 Drug: Ondansetron IVP 4 mg IVP once; over 2 minutes Route: IVP; Site: right antecubital;le1 13:23 Follow up: Response: No adverse reaction le1 Disposition: 16:13 Co-signature as Attending Physician, Santi Hargrove MD I reviewed the patient's care rt provided by the Advanced Practice Provider and agree with the diagnosis and treatment plan. Disposition Summary: 12/05/24 14:06 Discharge Ordered Notes: Location: Home kb Condition: Stable kb Diagnosis - Chest pain, unspecified kb Followup: kb - With: Emergency Department - When: As needed - Reason: Worsening of condition Followup: kb - With: Private Physician - When: 2 - 3 days - Reason: Recheck today's complaints, Continuance of care, Re-evaluation by your physician Discharge Instructions: - Discharge Summary Sheet kb - Nonspecific Chest Pain, Adult, [id number] kb Forms: - Medication Reconciliation Form kb - Antibiotic Education kb - Prescription Opioid Use kb - Patient Portal Instructions kb - Leadership Thank You Letter kb Prescriptions: - Diclofenac Sodium 75 mg Oral tablet, delayed release (enteric coated) - take 1 tablet ORAL route 2 times per day As needed; 30 tablet; Refills: 0, kb Product Selection Permitted - orphenadrine citrate 100 mg Oral Tablet Sustained Release - take 1 tablet ORAL route 2 times per day As needed; 20 tablet; Refills: 0, kb Product Selection Permitted Signatures: Dispatcher [employer] EDKY Arely Aguila, IP ARCHITECT-C IP ARCHITECT-Santi Garcia MD MD rt English, LaKendric RN RN le1
--- NOTE | 2024-12-05 14:07 | ER ---
Nurse's Notes [facility] Name: Mat Jenkins Age: 39 yrs Sex: Male : 1985 Arrival Date: 12/05/2024 Time: 10:52 Bed 8 Private MD: Diagnosis: Chest pain, unspecified Presentation: 12/05 11:14 Chief complaint: Patient states: Patient states he started feeling L side chest pain le1 radiating down L arm around 2 hours ago. Did not wake him up out of sleep, no N/V, +sob. Coronavirus screen: Vaccine status: Patient reports being unvaccinated. Client denies travel out of the [place] in the last 14 days. At this time, the client does not indicate any symptoms associated with coronavirus-19. Ebola Screen: Patient negative for fever greater than or equal to 101.5 degrees Fahrenheit, and additional compatible Ebola Virus Disease symptoms Patient denies exposure to infectious person. Patient denies travel to an Ebola-affected area in the 21 days before illness onset. No symptoms or risks identified at this time. Initial Sepsis Screen: Does the patient meet any 2 criteria? No. Patient's initial sepsis screen is negative. Does the patient have a suspected source of infection? No. Patient's initial sepsis screen is negative. Risk Assessment: Do you want to hurt yourself or someone else? Patient reports no desire to harm self or others. Onset of symptoms was December 05, 2024. 11:14 Method Of Arrival: Ambulatory le1 11:14 Acuity: SANDY 2 le1 Triage Assessment: 11:16 General: Appears distressed, uncomfortable, Behavior is cooperative, appropriate for le1 age, anxious. Pain: Complains of pain in anterior aspect of left upper chest and left arm Pain currently is 6 out of 10 on a pain scale. Quality of pain is described as stabbing. EENT: No deficits noted. Neuro: No deficits noted. Cardiovascular: Reports chest pain, diaphoresis, shortness of breath, since Today around 2 hours ago. Respiratory: Reports shortness of breath at rest since Today around 2 hrs ago. GI: No deficits noted. : No deficits noted. Musculoskeletal: No deficits noted. Historical: - Allergies: 11:18 No Known Allergies; le1 - PMHx: 11:18 Crohn's; Hernia; PTSD; Tonsillitis; le1 - PSHx: 11:18 Appendectomy; Tonsillectomy; le1 - Immunization history:: Adult Immunizations up to date. - Infectious Disease History:: Denies. - Social history:: Smoking status: Patient reports the use of cigarette tobacco products, cigars, Patient uses alcohol, occasionally. Screenin:19 [facility] ED Fall Risk Assessment (Adult) History of falling in the last 3 months, le1 including since admission No falls in past 3 months (0 pts) Confusion or Disorientation No (0 pts) Intoxicated or Sedated No (0 pts) Impaired Gait No (0 pts) Mobility Assist Device Used No (0 pt) Altered Elimination No (0 pt) Score/Fall Risk Level 0 - 2 = Low Risk Oriented to surroundings, Maintained a safe environment, Educated pt \T\ family on fall prevention, incl call for assistance when getting out of bed, Assessed \T\ reinforced patient's understanding of fall precautions, Hourly rounding (assess needs \T\ fall precautionary measures) done, Used ambulatory aids as needed (educated on \T\ assisted with). Abuse screen: Denies threats or abuse. Denies injuries from another. Nutritional screening: No deficits noted. Tuberculosis screening: No symptoms or risk factors identified. Assessment: 11:18 Reassessment: Triage assessment. le1 11:20 Pain: Pain radiates to anterior aspect of left upper chest and left arm Pain began 2 le1 hours ago. Vital Signs: 11:14 BP 141 / 98; Pulse 91; Resp 17; Temp 98.5(O); Pulse Ox 98% on R/A; Pain 6/10; le1 12:27 BP 134 / 90; Pulse 85; Resp 10; Pulse Ox 98% on R/A; Pain 2/10; le1 12:55 Pain 7/10; le1 13:29 BP 138 / 91; Pulse 82; Resp 16; Pulse Ox 98% on R/A; le1 14:03 BP 136 / 88; Pulse 84; Resp 14; Pulse Ox 97% on R/A; Pain 6/10; le1 14:21 Temp 98.8(O); le1 11:14 Pain Scale: Adult le1 12:27 Pain Scale: Adult le1 12:55 Pain Scale: Adult le1 14:03 Pain Scale: Adult le1 ED Course: 10:54 Patient arrived in ED. sj2 10:55 Vamsi Payton RN is Primary Nurse. le1 10:56 Arely Aguila FNP-C [facility]. kb 10:56 Santi Hargrove MD is Attending Physician. kb 11:04 EKG done, by ED staff, reviewed by Santi Hargrove MD. ty 11:04 Client placed on continuous cardiac and pulse oximetry monitoring. NIBP monitoring ty applied. campus monitor on. Pulse ox on. 11:16 Triage completed. le1 11:19 Patient has correct armband on for positive identification. Bed in low position. Call le1 light in reach. Side rails up X2. Adult w/ patient. Provided Education on: informed to use call light if needed. 11:19 Arm band placed on left wrist. le1 11:20 Initial lab(s) drawn, by me, sent to lab. Inserted saline lock: 20 gauge in right le1 antecubital area, using aseptic technique. Blood collected. Flushed with 10 mL NS. Patient maintains SpO2 saturation greater than 95% on room air. 11:41 XRAY Chest (1 view) In Process Unspecified. EDMS 13:24 Troponin HS Sent. le1 13:28 Repeat lab(s) drawn. by me, sent to lab. le1 14:22 No provider procedures requiring assistance completed. IV discontinued, intact, le1 bleeding controlled, No redness/swelling at site. Pressure dressing applied. Administered Medications: 11:13 Drug: Aspirin PO Chewable Tablet 324 mg PO once; 81 mg tablets x 4 Route: PO; le1 11:24 Follow up: Response: No adverse reaction; Pain is decreased le1 12:51 Drug: morphine IVP or IV 4 mg IVP once over 4 mins Route: IVP; Infused Over: 4 mins; le1 Site: right antecubital; 13:23 Follow up: Response: No adverse reaction; Pain is unchanged, physician notified le1 12:51 Drug: Ondansetron IVP 4 mg IVP once; over 2 minutes Route: IVP; Site: right antecubital;le1 13:23 Follow up: Response: No adverse reaction le1 Medication: 14:22 VIS not applicable for this client. le1 Outcome: 14:06 Discharge ordered by . elkin 14:22 Discharged to home ambulatory, le1 14:22 Condition: good 14:22 Discharge instructions given to patient, Instructed on discharge instructions, follow up and referral plans. medication usage, Demonstrated understanding of instructions, follow-up care, medications, Prescriptions given X 2, 14:23 Patient left the ED. le1 Signatures: Dispatcher [employer] EDArely Bee, PHYSICIST [employer]-C PHYSICIST [employer]-Khoa Khan LaKendric, RN RN le1 Rl[facility] sj2
[2024-12-05 14:32] VITALS: BP 136/88; O2SAT 97
[2024-12-05 14:33] VITALS: TEMP 98.8
== END 2024-12-05 14:23 | disposition home or self-care (01) ==
LOC: ER 10:52
DX: R07.9 Chest pain, unspecified (principal); R06.02 Shortness of breath; Z72.0 Tobacco use
CPT/HCPCS: 93005; 85025; 80048; 36415; 83735; 85610; 85379; 80076; 84484 ×2; 83880; 71045; 96375; 96374; 99285; J2405